=== PATIENT | male | born 1955 | race Caucasian/White ===

== ENCOUNTER → 2017-07-12 | Outpatient (CLI) | payer OTHER ==
[2017-07-12 21:06] LABS: SODIUM 138 mmol/L (136-145)
[2017-07-12 21:07] LABS: ANION GAP 14.3 mmol/L (8-16); BLOOD UREA NITROGEN 34 mg/dL (7-26); BUN/CREATININE RATIO 59 (6-25); CALCIUM 9.4 mg/dL (8.4-10.2); CARBON DIOXIDE 27 mmol/L (22-29); CHLORIDE 101 mmol/L (98-107); CREATININE, SERUM 0.58 mg/dL (0.72-1.25); EST GLOMERULAR FILTRATION RATE > 60 ML/MIN (60-); GLUCOSE 109 mg/dL (74-118); HEMATOCRIT 24.1 % (38.2-49.6); HEMOGLOBIN 7.5 g/dL (14.0-18.0); POTASSIUM 4.3 mmol/L (3.5-5.1)
[2017-07-12 21:08] LABS: BASOPHILS % 0.4 % (0.0-1.0); EOSINOPHILS # (AUTO) 0.3 (0.0-0.4); EOSINOPHILS % 3.3 % (0.0-6.0); LYMPHOCYTES # (AUTO) 0.8 (1.0-3.2); LYMPHOCYTES % 9.7 % (18.0-39.1); MEAN CORPUSCULAR HEMOGLOBIN 28.8 pg (28-32); MEAN CORPUSCULAR HGB CONC 31.1 g/dL (31-35); MEAN CORPUSCULAR VOLUME 92.7 fL (81-99); MONOCYTES # (AUTO) 0.5 (0.2-0.8); MONOCYTES % 5.8 % (4.4-11.3); NEUTROPHILS # (AUTO) 6.8 (2.1-6.9); NEUTROPHILS % 80.1 % (38.7-80.0); PLATELET COUNT 294 x10e3/uL (140-360); RED CELL DISTRIBUTION WIDTH 14.7 % (11.7-14.4)
[2017-07-19 13:58] LABS: CLARITY,URINE CLOUDY (CLEAR); COLOR,URINE YELLOW (YELLOW)
[2017-07-19 13:59] LABS: KETONES,URINE NEGATIVE (NEGATIVE); LEUKOCYTE ESTERASE ,URINE TRACE (NEGATIVE); NITRITE,URINE NEGATIVE (NEGATIVE); PROTEIN,URINE DIPSTICK NEGATIVE (NEGATIVE); URINE UROBILINOGEN 0.2 mg/dL (0.2 - 1)
[2017-07-19 14:00] LABS: BILIRUBIN,URINE NEGATIVE (NEGATIVE); WBC,URINE (MAN) 0-5 /HPF (0-5)
[2017-07-19 14:01] LABS: BACTERIA,URINE FEW /HPF; EPITHELIAL CELLS,URINE FEW /LPF; RBC,URINE 0-5 /HPF (0-5)
[2017-07-19 14:02] LABS: AMORPHOUS SEDIMENT,URINE MANY (FEW)
== END ==
LOC: NPA 09:00
PROVIDERS: ATTEND Internal Medicine
DX: R69 Illness, unspecified (principal)
CPT/HCPCS: 36415; 80048; 81001; 85025; 87070; 87086; 87205

== ENCOUNTER → 2017-07-18 | Outpatient (CLI) | payer OTHER ==
[~2017-07-18] MED LIST: M.V.I. ADULT10 ML PEG; VANCOMYCIN1 GM/250 M IV; ZINC SULFATE220 MG PEG
== END ==
LOC: NPA 17:00
PROVIDERS: ATTEND Internal Medicine
DX: Z02.89 Encounter for other administrative examinations (principal)

== ENCOUNTER → 2017-07-19 | Outpatient (CLI) | payer OTHER | LOC: NPA 09:00 | PROVIDERS: ATTEND Internal Medicine | DX: Z02.89 Encounter for other administrative examinations (principal) ==

== ENCOUNTER → 2017-07-22 | Outpatient (CLI) | payer OTHER | LOC: NPA 12:30 | PROVIDERS: ATTEND Internal Medicine | DX: Z02.89 Encounter for other administrative examinations (principal) | CPT/HCPCS: 36415 ==

== ENCOUNTER 2017-07-23 13:51 | Inpatient (IN) | payer MEDICARE ==
[~2017-07-23] VITALS: Ht 188 cm; Wt 96.2 kg
[2017-07-23] MEDS ORDERED: DILTIAZEM HCL 5 MG/ML 5 ML VIAL IV STA (13:58)
[2017-07-23] MEDS ORDERED: DILTIAZEM HCL 100 ML IV STA (13:58)
[2017-07-23] MEDS ORDERED: SODIUM CHLORIDE 0.9% 1000ML 1,000 ML IV STA (13:58)
[2017-07-23] MEDS ORDERED: DILTIAZEM HCL VIAL 5 ML ONE ×2 (14:08→15:13)
[2017-07-23] MEDS ORDERED: VANCOMYCIN1 GM/250 M IV (14:08)
[2017-07-23] MEDS ORDERED: M.V.I. ADULT10 ML PEG (14:08)
[2017-07-23] MEDS ORDERED: ZINC SULFATE220 MG PEG (14:09)
[2017-07-23 14:24] LABS: BASOPHILS % 0.3 % (0.0-1.0); EOSINOPHILS % 0.1 % (0.0-6.0); HEMATOCRIT 47.6 % (38.2-49.6); LYMPHOCYTES # (AUTO) 1.2 (1.0-3.2); LYMPHOCYTES % 10.1 % (18.0-39.1); MEAN CORPUSCULAR HEMOGLOBIN 31.3 pg (28-32); MEAN CORPUSCULAR HGB CONC 31.5 g/dL (31-35); MEAN CORPUSCULAR VOLUME 99.2 fL (81-99); MONOCYTES # (AUTO) 0.3 (0.2-0.8); MONOCYTES % 2.3 % (4.4-11.3); NEUTROPHILS # (AUTO) 10.3 (2.1-6.9); NEUTROPHILS % 86.9 % (38.7-80.0); PLATELET COUNT 305 x10e3/uL (140-360); RED CELL DISTRIBUTION WIDTH 14.6 % (11.7-14.4)
[2017-07-23] MEDS: DILTIAZEM HCL 100 ML IV SCH (14:30)
[2017-07-23 14:36] LABS: ALANINE AMINOTRANSFERASE 17 IU/L (0-55); ALBUMIN 3.2 g/dL (3.5-5.0); ALBUMIN/GLOBULIN RATIO 0.6 (0.8-2.0); ALKALINE PHOSPHATASE 194 IU/L (40-150); ANION GAP 18.1 mmol/L (8-16); BLOOD UREA NITROGEN 25 mg/dL (7-26); BUN/CREATININE RATIO 28 (6-25); CALCIUM 9.7 mg/dL (8.4-10.2); CARBON DIOXIDE 28 mmol/L (22-29); CHLORIDE 98 mmol/L (98-107); CREATINE KINASE 27 IU/L (30-200); CREATININE, SERUM 0.88 mg/dL (0.72-1.25); EST GLOMERULAR FILTRATION RATE > 60 ML/MIN (60-); GLUCOSE 200 mg/dL (74-118); LIPASE 155 U/L (8-78); POTASSIUM 4.1 mmol/L (3.5-5.1); SODIUM 140 mmol/L (136-145)
[2017-07-23] MEDS ORDERED: SODIUM CHLORIDE 0.9% 1000ML 1,000 ML ONE (14:40)
[2017-07-23 14:42] LABS: TROPONIN I 0.011 ng/mL (0-0.300)
[2017-07-23] MEDS ORDERED: SODIUM CHLORIDE 0.9% 1000ML 1,000 ML IV ONE (14:45)
[2017-07-23 14:56] LABS: ABG HCO3 23 mmol/L (23-28); ABG PCO2 39 mmHg (41-51); ABG PH 7.39 (7.31-7.41); ABG PO2 58 mmHg (80-105)
--- NOTE | 2017-07-23 15:06 | Diagnostic Imaging Report ---
PROCEDURE: A single AP view of the chest. COMPARISON: None. INDICATIONS: SHORTNESS OF BREATH FINDINGS: Lines/tubes: Tracheostomy tube is in place. Lungs: Lungs are hypoinflated. Multifocal air space opacities, including the left upper lobe. Pleura: There is no pleural effusion or pneumothorax. Heart and mediastinum: The heart and the mediastinum are unremarkable. Bones: No acute bony abnormality. IMPRESSION: Multifocal airspace opacities, likely multifocal pneumonia/aspiration. Dictated by: Silas Colorado M.D. on 07/23/2017 at 15:14 Electronically approved by: Silas Colorado M.D. on 07/23/2017 at 15:14
[2017-07-23] MEDS ORDERED: LORAZEPAM INJ 2 MG/ML VIAL IV ONE (15:15)
[2017-07-23] MEDS ORDERED: LORAZEPAM INJ 2 MG/ML VIAL ONE (15:17)
[2017-07-23] MEDS ORDERED: DIGOXIN INJ 0.25 MG/ML 2 ML AMP IV NR (15:30)
[2017-07-23] MEDS ORDERED: PIPER-TAZ 3.375 GM 50 ML IV STA (15:32)
[2017-07-23] MEDS ORDERED: HYDROCORTISONE SOD SUCCINATE 100 MG VIAL IV ONE (15:45)
[2017-07-23 16:00] LABS: BILIRUBIN,URINE NEGATIVE (NEGATIVE); CLARITY,URINE SL CLOUDY (CLEAR); COLOR,URINE YELLOW (YELLOW); KETONES,URINE NEGATIVE (NEGATIVE); LEUKOCYTE ESTERASE ,URINE TRACE (NEGATIVE); NITRITE,URINE NEGATIVE (NEGATIVE); PROTEIN,URINE DIPSTICK NEGATIVE (NEGATIVE); URINE UROBILINOGEN 0.2 mg/dL (0.2 - 1)
[2017-07-23 16:01] LABS: ABG HCO3 20 mmol/L (23-28); ABG PCO2 43 mmHg (41-51); ABG PH 7.27 (7.31-7.41); ABG PO2 62 mmHg (80-105)
[2017-07-23] MEDS ORDERED: VECURONIUM BROMIDE FOR INJ 20 MG VIAL IV STA (16:05)
[2017-07-23] MEDS ORDERED: MIDAZOLAM HCL 2 MG/2 ML VIAL IV STA (16:05)
[2017-07-23 16:12] LABS: BACTERIA,URINE FEW /HPF; EPITHELIAL CELLS,URINE RARE /LPF; RBC,URINE 0-5 /HPF (0-5)
[2017-07-23] MEDS ORDERED: SODIUM CHLORIDE 0.9% 1000ML 1,000 ML IV SCH ×3 (17:00→18:03)
[2017-07-23] MEDS ORDERED: PROPOFOL IV EMULSION 10 MG/ML 50 ML VIAL IV PRN ×2 (17:15→18:15)
[2017-07-23] MEDS ORDERED: PROPOFOL IV EMULSION 10MG/ML 100 ML ONE (17:23)
[2017-07-23] MEDS ORDERED: VANCOMYCIN 1GM/NS 250 ML 250 ML IV STA (17:23)
[2017-07-23 18:03] LABS: INR 1.23; PARTIAL THROMBOPLASTIN TIME 27.4 seconds (23.8-35.5); PROTHROMBIN TIME 16.1 seconds (11.9-14.5)
[2017-07-23] MEDS ORDERED: VANCOMYCIN HCL 1GM/NS 250 ML BAG IV SCH (18:15)
[2017-07-23] MEDS ORDERED: DILTIAZEM HCL 100 ML IV SCH (18:15)
[2017-07-23] MEDS: ENOXAPARIN INJ 80 MG/0.8 ML SYR SC SCH (18:33)
[2017-07-23 19:00] VITALS: BP 114/96
[2017-07-23] MEDS ORDERED: ALBUTEROL SULF 0.083% NEB SOLN 3 ML NEB NEB SCH (19:00)
[2017-07-23 20:00] VITALS: BP 107/65
[2017-07-23] MEDS: IPRATROPIUM BROMIDE 0.02% 2.5 ML NEB NEB SCH (20:20)
[2017-07-23 21:00] VITALS: BP 113/68
[2017-07-23] MEDS ORDERED: FENTANYL CITRATE INJ 2,000 MCG in SODIUM CHLORIDE 0.9% 250ML 210 ML IV PRN (21:00)
[2017-07-23] MEDS: SODIUM CHLORIDE 0.9% 1000ML 1,000 ML IV SCH (21:20)
[2017-07-23 22:00] VITALS: BP 104/70
[2017-07-23 22:11] LABS: CREATINE KINASE MB 1.3 ng/mL (0.00-5.00); TROPONIN I 0.021 ng/mL (0-0.300)
[2017-07-23 23:00] VITALS: BP 108/56
[2017-07-24] VITALS (21 sets, daily range): BP systolic 75–128; BP diastolic 37–98
[2017-07-24] MEDS ORDERED: HYDROCORTISONE SOD SUCCINATE 250 MG VIAL IV SCH
--- NOTE | 2017-07-24 01:20 | Consultation ---
DATE OF CONSULTATION: July 23, 2017 Patient is known to me from [facility]. Patient was transferred here for rapid AFib and increased heart rate. HPI: Mr. Burt is a 61-year-old male, who has a tracheostomy and a PEG and he is on ventilator and we are trying to wean him from the ventilator at [facility]. He has been on trach collar. He has a history of craniotomy for intracranial hemorrhage. Details are not very clear. He has hemiplegia due to that. He was sent in with rapid atrial fibrillation and rapid heart rate. Patient was found to be in atrial flutter and I was called this morning that patient's sputum grew out MRSA and he has multilobar infiltrate on the chest x-ray. Patient is unable to give me any history. REVIEW OF SYSTEMS: Unable to elicit because of patient's mental status. PAST MEDICAL HISTORY: History of stroke, craniotomy, tracheostomy, PEG tube status. This is all from the chart. Hypertension, hypothyroidism. PAST SURGICAL HISTORY: Craniotomy. FAMILY AND SOCIAL HISTORY: He is currently living at [facility]. PHYSICAL EXAM VITALS: Temperature 97.7, pulse of 120, blood pressure 152/93, respiratory rate is 18. He is on 100% FiO2 with a tidal volume of 550, and PEEP of 5. Patient has previous craniotomy and has right side of the skull is depressed and there is no bone. Tracheostomy. He is not responsive. He is on propofol. CHEST: Crackles bilaterally. HEART: S1, S2 audible. Tachycardic. No murmurs, gallops or rub. ABDOMEN: Soft, nontender. He has a PEG tube. EXTREMITIES: No pedal edema. NEUROLOGIC: Right now sedated and patient has a tracheostomy on a ventilator. LABORATORY DATA: Sodium 140, potassium 4.1, chloride 98, BUN 25, creatinine 0.8. White count of 11,000, hemoglobin 15, platelets 305,000. INR is 1.23. Blood gas, pH of 7.27, pCO2 43, pO2 62. Chest x-ray showing multilobar infiltrate. ASSESSMENT AND PLAN: Mr. Burt is a 61-year-old male, who history of craniotomy. Patient was at [facility], weaned from the ventilator, and was on trach collar, presented here with multilobar pneumonia and atrial fibrillation. PLAN 1. Continue the patient on IV vancomycin and Zosyn. Cultures at [facility] grew out MRSA. 2. Hydrocortisone has been started for hypotension. 3. Recommend starting fentanyl infusion instead of propofol. 4. Management of atrial fibrillation per cardiology. 5. I will discontinue albuterol and continue the patient on ipratropium because of tachycardia. CRITICAL CARE TIME SPENT: 45 minutes. Job#: [id number] CQ
[2017-07-24 01:30] LABS: ABG PH 7.38 (7.31-7.41)
--- NOTE | 2017-07-24 01:55 | History and Physical ---
CHIEF COMPLAINT: Respiratory failure, tracheostomy, history of craniotomy, nonverbal, septic shock, aspiration pneumonia. HISTORY: The patient is a 61-year-old male, a resident of [facility] facility was brought into the emergency room here at [facility] with respiratory failure. The patient is at baseline with tracheostomy. He is with fever. The imaging tests that was done in the emergency room showed that the patient had multifocal airspace opacity with multiple focal pneumonia with aspiration. The patient's baseline with history of craniotomy. He had a tracheostomy and also PEG tube. The patient seems quite significantly ill. His blood pressure systolic is 99. The patient in sepsis with shock. He was placed on pressor support, IV fluid boluses. He is placed on IV antibiotics. The patient is admitted for treatment. PAST MEDICAL HISTORY: Limited due to the patient nonverbal, but seems like that the patient is medically debilitated. He has a tracheostomy and PEG tube. He had craniotomy. Aspiration. Chronically ill, bedbound and full care. Extensive lower extremity swelling with significant decubitus ulcer. SOCIAL HISTORY: Not available. PHYSICAL EXAMINATION VITAL SIGNS: Temperature is 100, blood pressure 99/57, pulse rate 128 and atrial fibrillation. GENERAL: Patient seems very ill. Tracheostomy and PEG tube. HEENT: Significant for craniotomy with a large indentation to right scalp area. There is no sign of new insult to the scalp or the head. Tracheostomy. PULMONARY: Diminished breath sounds bilaterally with coarses. CARDIOVASCULAR: Atrial fibrillation with rapid rate. ABDOMEN: Soft. PEG tube feeding. EXTREMITIES: Extensive chronic skin changes with ulceration and peripheral vascular disease. NEUROLOGIC: Not able to assess. LABORATORY: WBC is 11.8, hemoglobin 15, hematocrit 47.6, and platelets is 305,000. Chemistry: Sodium is 140, potassium 4.1, chloride 98, bicarb 26, BUN 25, creatinine 0.8, glucose is 200. IMAGING: Showed multifocal pneumonia. IMPRESSION 1. Atrial fibrillation with rapid rate. 2. Aspiration pneumonia. 3. Sepsis with shock. 4. Tracheostomy with respiratory failure and ventilator support. 5. Significant debility. PLAN: Continue with IV antibiotics. Ventilator support. Consultation with cardiology. Rate control medication. Bolus of IV fluids. Antibiotics. Will get the patient's medical records for further medical history. Job#: [id number] RI
[2017-07-24] MEDS: IPRATROPIUM BROMIDE 0.02% 2.5 ML NEB NEB SCH ×4 (02:20→20:45)
[2017-07-24] MEDS: HYDROCORTISONE SOD SUCCINATE 100 MG VIAL IV SCH ×4 (02:52→18:36)
[2017-07-24] MEDS: PIPER-TAZ 3.375 GM 50 ML IV SCH ×4 (02:53→18:36)
[2017-07-24 05:38] LABS: BASOPHILS % 0.3 % (0.0-1.0); HEMATOCRIT 36.2 % (38.2-49.6); HEMOGLOBIN 11.7 g/dL (14.0-18.0); LYMPHOCYTES # (AUTO) 1.2 (1.0-3.2); LYMPHOCYTES % 9.5 % (18.0-39.1); MEAN CORPUSCULAR HEMOGLOBIN 31.3 pg (28-32); MEAN CORPUSCULAR HGB CONC 32.3 g/dL (31-35); MEAN CORPUSCULAR VOLUME 96.8 fL (81-99); MONOCYTES # (AUTO) 0.9 (0.2-0.8); NEUTROPHILS # (AUTO) 10.6 (2.1-6.9); PLATELET COUNT 226 x10e3/uL (140-360); RED BLOOD COUNT 3.74 x10e6/uL (4.3-5.7); RED CELL DISTRIBUTION WIDTH 14.8 % (11.7-14.4)
[2017-07-24 05:56] LABS: ANION GAP 15.9 mmol/L (8-16); CALCIUM 8.3 mg/dL (8.4-10.2); CREATININE, SERUM 1.29 mg/dL (0.72-1.25); POTASSIUM 3.9 mmol/L (3.5-5.1)
[2017-07-24] MEDS: VANCOMYCIN 1GM/NS 250 ML 250 ML IV SCH ×2 (06:00→18:36)
[2017-07-24] MEDS: SODIUM CHLORIDE 0.9% 1000ML 1,000 ML IV SCH ×3 (06:00→22:00)
[2017-07-24 06:19] LABS: CREATINE KINASE MB 3.6 ng/mL (0.00-5.00); THYROID STIMULATING HORMONE 2.917 uIU/mL (0.350-4.940); TROPONIN I 0.012 ng/mL (0-0.300)
[2017-07-24 07:07] LABS: BAND NEUTROPHILS % (MANUAL) 24 %; LYMPHOCYTES % (MANUAL) 11 % (19-48); MONOCYTES % (MANUAL) 9 % (3.4-9.0); MYELOCYTES % (MANUAL) 1 % (0-0); NEUTROPHILS % (MANUAL) 53 % (40-74)
[2017-07-24 07:13] LABS: ANISOCYTOSIS SLIGHT; PLATELET ESTIMATE ADEQUATE; PLATELET MORPHOLOGY COMMENT NORMAL; RBC MORPHOLOGY COMMENT NORMAL; TEAR DROP CELLS FEW
[2017-07-24] MEDS ORDERED: SODIUM CHLORIDE 0.9% 1000ML 500 ML IV SCH (07:15)
[2017-07-24] MEDS ORDERED: ENOXAPARIN SOD INJ 40 MG/0.4 ML SYR SC SCH (09:00)
[2017-07-24] MEDS: DIGOXIN INJ 0.25 MG/ML 2 ML AMP IV SCH (09:00)
[2017-07-24] MEDS: ENOXAPARIN INJ 80 MG/0.8 ML SYR SC SCH ×2 (09:00→21:20)
[2017-07-24 14:04] LABS: CREATINE KINASE MB 3.2 ng/mL (0.00-5.00); TROPONIN I 0.006 ng/mL (0-0.300)
[2017-07-24] MEDS: DILTIAZEM HCL 100 ML IV SCH (15:20)
[2017-07-24] MEDS ORDERED: VANCOMYCIN 1GM/NS 250 ML 250 ML IV SCH (18:00)
--- NOTE | 2017-07-24 21:54 | Diagnostic Imaging Report ---
EXAM: CHEST SINGLE (PORTABLE), AP 1 view DATE: 07/24/2017 5:00 AM Time stamp on exam: 0617 hours INDICATION: Shortness of breath, ventilated patient COMPARISON: AP view of the chest July 23, 2017 FINDINGS: LINES/TUBES: Stable tracheostomy tube LUNGS: Airspace opacities predominantly in the lung bases. PLEURA: No effusions or pneumothorax. HEART AND MEDIASTINUM: Normal size and contour. BONES AND SOFT TISSUES: No acute findings. IMPRESSION: Stable findings suspicious for multifocal pneumonia. Signed by: Dr. Marlene Kapoor M.D. on 07/24/2017 9:51 PM
[2017-07-25] MEDS: IPRATROPIUM BROMIDE 0.02% 2.5 ML NEB NEB SCH ×5 (01:00→18:48)
[2017-07-25] MEDS: HYDROCORTISONE SOD SUCCINATE 100 MG VIAL IV SCH ×5 (01:26→22:19)
[2017-07-25] MEDS: PIPER-TAZ 3.375 GM 50 ML IV SCH ×4 (05:55→18:09)
[2017-07-25 06:00] LABS: BASOPHILS % 0.2 % (0.0-1.0); EOSINOPHILS # (AUTO) 0.1 (0.0-0.4); EOSINOPHILS % 0.7 % (0.0-6.0); HEMATOCRIT 31.8 % (38.2-49.6); HEMOGLOBIN 10.2 g/dL (14.0-18.0); LYMPHOCYTES # (AUTO) 1.2 (1.0-3.2); LYMPHOCYTES % 10.2 % (18.0-39.1); MEAN CORPUSCULAR HEMOGLOBIN 31.5 pg (28-32); MEAN CORPUSCULAR HGB CONC 32.1 g/dL (31-35); MEAN CORPUSCULAR VOLUME 98.1 fL (81-99); MONOCYTES # (AUTO) 0.9 (0.2-0.8); MONOCYTES % 7.7 % (4.4-11.3); NEUTROPHILS # (AUTO) 9.9 (2.1-6.9); NEUTROPHILS % 80.9 % (38.7-80.0); PLATELET COUNT 203 x10e3/uL (140-360); RED BLOOD COUNT 3.24 x10e6/uL (4.3-5.7); RED CELL DISTRIBUTION WIDTH 15.1 % (11.7-14.4)
[2017-07-25 06:17] LABS: BLOOD UREA NITROGEN 28 mg/dL (7-26); BUN/CREATININE RATIO 34 (6-25); CALCIUM 8.2 mg/dL (8.4-10.2); CARBON DIOXIDE 23 mmol/L (22-29); CHLORIDE 111 mmol/L (98-107); CREATININE, SERUM 0.82 mg/dL (0.72-1.25); EST GLOMERULAR FILTRATION RATE > 60 ML/MIN (60-); GLUCOSE 116 mg/dL (74-118); SODIUM 143 mmol/L (136-145)
[2017-07-25] MEDS: VANCOMYCIN 1GM/NS 250 ML 250 ML IV SCH ×2 (06:26→18:45)
[2017-07-25] MEDS: ENOXAPARIN INJ 80 MG/0.8 ML SYR SC SCH (09:27)
[2017-07-25] MEDS: DIGOXIN INJ 0.25 MG/ML 2 ML AMP IV SCH (09:27)
[2017-07-25] MEDS: SODIUM CHLORIDE 0.9% 1000ML 1,000 ML IV SCH ×2 (09:27→13:16)
[2017-07-25] MEDS ORDERED: DEXTROSE 5% IV PRN (12:00)
[2017-07-25] MEDS ORDERED: DILTIAZEM HCL IV PRN (12:00)
[2017-07-25] MEDS ORDERED: POTASSIUM CHLORIDE 20MEQ/15ML UDC NG NR (12:45)
[2017-07-26] VITALS (8 sets, daily range): BP systolic 61–144; BP diastolic 43–94
[2017-07-26] MEDS: PIPER-TAZ 3.375 GM 50 ML IV SCH ×4 (00:29→18:00)
[2017-07-26] MEDS: IPRATROPIUM BROMIDE 0.02% 2.5 ML NEB NEB SCH ×4 (02:05→20:15)
[2017-07-26] MEDS: VANCOMYCIN 1GM/NS 250 ML 250 ML IV SCH ×2 (06:00→18:00)
[2017-07-26] MEDS: HYDROCORTISONE SOD SUCCINATE 100 MG VIAL IV SCH ×2 (06:00→14:51)
[2017-07-26 06:45] LABS: BASOPHILS % 0.2 % (0.0-1.0); EOSINOPHILS % 0.1 % (0.0-6.0); HEMATOCRIT 30.6 % (38.2-49.6); HEMOGLOBIN 9.8 g/dL (14.0-18.0); LYMPHOCYTES # (AUTO) 1.3 (1.0-3.2); LYMPHOCYTES % 12.1 % (18.0-39.1); MEAN CORPUSCULAR HEMOGLOBIN 31.3 pg (28-32); MEAN CORPUSCULAR VOLUME 97.8 fL (81-99); MONOCYTES # (AUTO) 0.7 (0.2-0.8); MONOCYTES % 6.5 % (4.4-11.3); NEUTROPHILS # (AUTO) 8.5 (2.1-6.9); PLATELET COUNT 242 x10e3/uL (140-360); RED BLOOD COUNT 3.13 x10e6/uL (4.3-5.7); RED CELL DISTRIBUTION WIDTH 14.9 % (11.7-14.4)
[2017-07-26 08:21] LABS: ANION GAP 12.2 mmol/L (8-16); BLOOD UREA NITROGEN 23 mg/dL (7-26); BUN/CREATININE RATIO 33 (6-25); CALCIUM 8.2 mg/dL (8.4-10.2); CARBON DIOXIDE 23 mmol/L (22-29); CHLORIDE 113 mmol/L (98-107); CREATININE, SERUM 0.69 mg/dL (0.72-1.25); EST GLOMERULAR FILTRATION RATE > 60 ML/MIN (60-); GLUCOSE 134 mg/dL (74-118); POTASSIUM 3.2 mmol/L (3.5-5.1); SODIUM 145 mmol/L (136-145)
[2017-07-26] MEDS ORDERED: DEXTROSE 5% IV PRN (08:45)
[2017-07-26] MEDS ORDERED: DILTIAZEM HCL IV PRN (08:45)
[2017-07-26] MEDS: ASPIRIN 325 MG TAB PO SCH (10:03)
[2017-07-26] MEDS: DIGOXIN INJ 0.25 MG/ML 2 ML AMP IV SCH (10:03)
[2017-07-27] VITALS (19 sets, daily range): BP systolic 133–169; BP diastolic 75–120
[2017-07-27] MEDS: PIPER-TAZ 3.375 GM 50 ML IV SCH ×4 (00:51→18:55)
[2017-07-27] MEDS: IPRATROPIUM BROMIDE 0.02% 2.5 ML NEB NEB SCH ×4 (01:00→20:20)
[2017-07-27 05:22] LABS: BASOPHILS # (AUTO) 0.1 (0.0-0.1); BASOPHILS % 0.4 % (0.0-1.0); EOSINOPHILS # (AUTO) 0.1 (0.0-0.4); HEMATOCRIT 33.3 % (38.2-49.6); HEMOGLOBIN 10.5 g/dL (14.0-18.0); LYMPHOCYTES # (AUTO) 1.7 (1.0-3.2); LYMPHOCYTES % 13.5 % (18.0-39.1); MEAN CORPUSCULAR HEMOGLOBIN 30.6 pg (28-32); MEAN CORPUSCULAR HGB CONC 31.5 g/dL (31-35); MEAN CORPUSCULAR VOLUME 97.1 fL (81-99); MONOCYTES # (AUTO) 1.1 (0.2-0.8); MONOCYTES % 9.1 % (4.4-11.3); NEUTROPHILS # (AUTO) 9.2 (2.1-6.9); NEUTROPHILS % 74.5 % (38.7-80.0); PLATELET COUNT 280 x10e3/uL (140-360); RED BLOOD COUNT 3.43 x10e6/uL (4.3-5.7); RED CELL DISTRIBUTION WIDTH 14.7 % (11.7-14.4)
[2017-07-27 05:39] LABS: ANION GAP 12.2 mmol/L (8-16); BLOOD UREA NITROGEN 19 mg/dL (7-26); BUN/CREATININE RATIO 29 (6-25); CALCIUM 8.3 mg/dL (8.4-10.2); CARBON DIOXIDE 26 mmol/L (22-29); CHLORIDE 111 mmol/L (98-107); CREATININE, SERUM 0.65 mg/dL (0.72-1.25); EST GLOMERULAR FILTRATION RATE > 60 ML/MIN (60-); GLUCOSE 99 mg/dL (74-118); POTASSIUM 3.2 mmol/L (3.5-5.1); SODIUM 146 mmol/L (136-145); VANCOMYCIN,RANDOM 17.8 ug/mL
[2017-07-27] MEDS: BALSAM PERU/CASTOR OIL 60 GM OINT...G. TP SCH ×3 (06:00→20:43)
[2017-07-27] MEDS: VANCOMYCIN 1GM/NS 250 ML 250 ML IV SCH ×2 (06:00→19:39)
[2017-07-27] MEDS ORDERED: HYDROCORTISONE SOD SUCCINATE 100 MG VIAL IV SCH (09:00)
[2017-07-27] MEDS ORDERED: HYDROMORPHONE 2MG/ML INJ IV PRN (09:00)
[2017-07-27] MEDS: ASPIRIN 325 MG TAB PO SCH (09:59)
[2017-07-27] MEDS: DIGOXIN INJ 0.25 MG/ML 2 ML AMP IV SCH (09:59)
[2017-07-27] MEDS: FENTANYL 50 MCG/HR PATCH TOP SCH (10:56)
[2017-07-27] MEDS ORDERED: FUROSEMIDE INJ 10 MG/ML 4 ML VIAL IV ONE (12:00)
[2017-07-27] MEDS: HYDROMORPHONE 2MG/ML INJ IV PRN (14:12)
[2017-07-27] MEDS ORDERED: SODIUM CHLORIDE 0.9% 250ML 250 ML ONE (18:40)
[2017-07-28] VITALS (10 sets, daily range): BP systolic 140–172; BP diastolic 78–102
[2017-07-28] MEDS: PIPER-TAZ 3.375 GM 50 ML IV SCH ×5 (00:32→23:44)
[2017-07-28] MEDS: IPRATROPIUM BROMIDE 0.02% 2.5 ML NEB NEB SCH ×3 (02:05→13:30)
[2017-07-28] MEDS: VANCOMYCIN 1GM/NS 250 ML 250 ML IV SCH ×2 (06:11→18:00)
[2017-07-28] MEDS: LEVOTHYROXINE SODIUM 100 MCG/VIAL IV SCH (09:17)
[2017-07-28] MEDS: ASPIRIN 325 MG TAB PO SCH (09:17)
[2017-07-28] MEDS: DIGOXIN INJ 0.25 MG/ML 2 ML AMP IV SCH (09:17)
[2017-07-28] MEDS: HYDROMORPHONE 2MG/ML INJ IV PRN ×2 (10:30→22:10)
[2017-07-28] MEDS: BALSAM PERU/CASTOR OIL 60 GM OINT...G. TP SCH ×3 (11:14→21:23)
[2017-07-28] MEDS ORDERED: POTASSIUM CHLORIDE 20 MEQ TAB CR PO ONE (16:30)
[2017-07-29] VITALS (7 sets, daily range): BP systolic 134–169; BP diastolic 77–95
[2017-07-29] MEDS: IPRATROPIUM BROMIDE 0.02% 2.5 ML NEB NEB SCH ×4 (02:30→20:30)
[2017-07-29] MEDS: PIPER-TAZ 3.375 GM 50 ML IV SCH (05:49)
[2017-07-29] MEDS: VANCOMYCIN 1GM/NS 250 ML 250 ML IV SCH ×2 (06:15→17:44)
[2017-07-29 07:07] LABS: BASOPHILS # (AUTO) 0.1 (0.0-0.1); BASOPHILS % 0.4 % (0.0-1.0); EOSINOPHILS # (AUTO) 0.2 (0.0-0.4); EOSINOPHILS % 1.1 % (0.0-6.0); HEMATOCRIT 33.8 % (38.2-49.6); HEMOGLOBIN 10.8 g/dL (14.0-18.0); LYMPHOCYTES # (AUTO) 1.4 (1.0-3.2); MEAN CORPUSCULAR HEMOGLOBIN 31.1 pg (28-32); MEAN CORPUSCULAR VOLUME 97.4 fL (81-99); MONOCYTES # (AUTO) 1.5 (0.2-0.8); MONOCYTES % 8.5 % (4.4-11.3); NEUTROPHILS # (AUTO) 13.7 (2.1-6.9); NEUTROPHILS % 80.1 % (38.7-80.0); PLATELET COUNT 299 x10e3/uL (140-360); RED BLOOD COUNT 3.47 x10e6/uL (4.3-5.7)
[2017-07-29 07:49] LABS: ANION GAP 10.8 mmol/L (8-16); BLOOD UREA NITROGEN 19 mg/dL (7-26); BUN/CREATININE RATIO 27 (6-25); CALCIUM 8.2 mg/dL (8.4-10.2); CARBON DIOXIDE 31 mmol/L (22-29); CHLORIDE 106 mmol/L (98-107); EST GLOMERULAR FILTRATION RATE > 60 ML/MIN (60-); GLUCOSE 167 mg/dL (74-118); SODIUM 145 mmol/L (136-145)
[2017-07-29 07:53] LABS: POTASSIUM 2.8 mmol/L (3.5-5.1)
[2017-07-29 08:23] LABS: MAGNESIUM 1.3 MG/DL (1.3-2.1); PHOSPHORUS 2.6 MG/DL (2.3-4.7)
[2017-07-29] MEDS ORDERED: MAGNESIUM SULFATE 2GM/50ML IV ONE (09:00)
[2017-07-29] MEDS ORDERED: POTASSIUM CHLORIDE 20 MEQ TAB CR PO SCH (09:30)
[2017-07-29] MEDS ORDERED: MAGNESIUM SULFATE 2GM/50ML 50 ML IV ONE (09:30)
[2017-07-29] MEDS: ASPIRIN 325 MG TAB PO SCH (10:00)
[2017-07-29] MEDS ORDERED: POTASSIUM CHLORIDE 100 ML IV ONE (10:00)
[2017-07-29] MEDS: DIGOXIN INJ 0.25 MG/ML 2 ML AMP IV SCH (10:00)
[2017-07-29] MEDS: BALSAM PERU/CASTOR OIL 60 GM OINT...G. TP SCH ×3 (10:27→22:50)
[2017-07-29] MEDS: SOD CHL 0.45%/POT CHL 20MEQ 1,000 ML IV SCH ×2 (12:27→22:24)
--- NOTE | 2017-07-29 13:20 | Consultation ---
DATE OF CONSULTATION: July 24, 2017 CARDIOLOGY CONSULTATION ATTENDING PHYSICIAN: Dr. Adi Elkins. Thank you for asking me to see this challenging patient in consultation. Mr. Randolph is a very complex 61-year-old man, a resident of [facility]. CHIEF COMPLAINT: He is transferred to the [facility] emergency room after he developed some respiratory insufficiency and chest x-ray suggests pneumonia and sputum cultures grew MRSA. PAST MEDICAL HISTORY: Is difficult to obtain, but records from [facility] show that about June 08, 2017, he was transported from [facility] by [employer] helicopter to [facility] for a cerebrovascular accident and had a craniotomy performed. The exact details, findings and results are not entirely clear. The records at [facility] do report intermittent or paroxysmal atrial fibrillation, but he is on no anti-arrhythmic medicine. His medicines as the [facility] include vancomycin, multivitamin, metoprolol tartrate 50 mg by G tube daily, digoxin 0.125 mg daily, levothyroxine 125 mcg daily, DuoNeb treatments, sliding-scale insulin, atorvastatin, tramadol. PERSONAL AND SOCIAL HISTORY AND REVIEW OF SYSTEMS: Not available as the patient is on ventilator and no family present. PAST SURGICAL HISTORY: Also, in addition to his craniotomy, has also had tracheostomy and PEG tube. PHYSICAL EXAMINATION: GENERAL: At this time shows a white man who is awake, is on ventilator. HEENT: Show that he has had the right-sided craniotomy defect, large. Pupils are equal, round, reactive. NECK: No jugular venous distention. There is tracheostomy present. THORAX: Heart sounds S1 and S2 are equal, irregularly irregular. There is no distinct murmur audible. Lungs have rhonchi bilaterally. ABDOMEN: Protuberant. PEG tube. EXTREMITIES: Show trophic changes. ASSESSMENT: 1. Respiratory insufficiency. 2. Methicillin-resistant Staph aureus pneumonia. 3. Atrial fibrillation. Rate control better with Cardizem drip. PLAN: Agree with continuing Cardizem drip. Will check echo and cardiac enzymes. Cannot consider anticoagulation at this time due to recent stroke described as large and craniotomy. Prognosis is guarded. Thank you for asking me to see him in consultation. Job#: [id number] EV cc:MD TIERNEY VILLANUEVA M.D.
[2017-07-29] MEDS: LEVOTHYROXINE SODIUM 100 MCG/VIAL IV SCH (13:28)
[2017-07-29] MEDS: MEROPENEM 500MG 500 MG in WATER STERILE 10ML VIAL 10 ML IV SCH ×2 (13:28→22:24)
[2017-07-29] MEDS ORDERED: DIATRIZOATE MEGL/DIATRIZOA SOD 30 ML BTL PO ONE ×2 (14:14→16:32)
--- NOTE | 2017-07-29 14:28 | Consultation ---
DATE OF CONSULTATION: REASON FOR CONSULTATION: Pneumonia. Thank you so much for asking me to see this patient. HISTORY OF PRESENT ILLNESS: This patient is a 61-year-old white [facility] The patient was brought to the emergency room with shortness of breath and cough. The patient has an underlying history of tracheostomy. The patient is medically debilitated and not a good source of information. He does have a trach and PEG. The patient had a craniotomy. He has history of recurrent aspiration. He is chronically ill and bedbound. Extensive bilateral lower extremity edema and decubitus ulcers. The patient was admitted and started on antibiotic. Infectious disease was consulted today. He was originally admitted on July 23, 2017. He has been on antibiotic since then. Patient apparently was quite ill when he first came to the emergency room, but today he looks much better. He is alert and follows simple commands. This patient has a history of atrial fibrillation with tachycardia, history of recurrent aspiration, history of sepsis. He has a tracheostomy. History of PEG tube placement. History of craniotomy. The patient when he first came was on a ventilator, but currently he is off the vent. I do not know why he has a history of craniotomy. PAST MEDICAL HISTORY: As above. PAST SURGICAL HISTORY: As above. ALLERGIES: HYDROCODONE AND SULFA DRUGS. SOCIAL HISTORY: There is no smoking, drug abuse or alcohol abuse currently. FAMILY HISTORY: Could not be obtained. MEDICATION: He is currently on potassium chloride. He is on aspirin, digoxin, Atrovent, vancomycin, levothyroxine, Fentanyl and meropenem. REVIEW OF SYSTEMS: Very hard to get from this patient. He follows simple commands. Nurse is at the bedside. I discussed with her. She thinks he is doing better in general. LABORATORY DATA: Reviewed. His white count today is 17.1. When he first came, it was 12, went down to 10, and now it is up to 17.11. Hemoglobin 10.8, hematocrit 33. Sodium 145, potassium 2.8, creatinine 0.70. Vancomycin trough has been 16.3. His C. diff and influenza A and B have been negative. LABS: He had a wound culture showing ESBL and MRSA. His blood culture shows coagulase-negative staph. He had a chest x-ray which was multifocal pneumonia. PHYSICAL EXAMINATION GENERAL: Currently alert and oriented, follows simple commands. VITALS: Stable. Currently afebrile. HEENT: Not icteric. Normocephalic. NECK: Supple. CHEST: Few crackles bilaterally. COR: S1 and S2. No S3, S4 or murmur. ABDOMEN: Soft. Bowel sounds present. No tenderness. EXTREMITIES: There is some trace edema. He does have a decubitus ulcer in the sacral area. IMPRESSION 1. Leukocytosis in a patient who was originally admitted for pneumonia. I suspect it was aspiration. This is day #5, and the white count is getting worse. I would recommend to recheck CT chest, abdomen and pelvis to assess his pneumonia but also to assess the decubitus ulcer. I am concerned that his leukocytosis could be drug related. Clinically, he seems better. His pneumonia seems to be better. Will follow with you. 2. History of craniotomy. 3. History of tracheostomy. Further recommendations to follow. Job#: [id number]
[2017-07-29] MEDS ORDERED: SODIUM CHLORIDE 0.9% 50ML 50 ML ONE (22:40)
[2017-07-29] MEDS ORDERED: IOPAMIDOL 370 MG/ML 200 ML INFUS..BTL INJ ONE (22:41)
[2017-07-30] VITALS (8 sets, daily range): BP systolic 139–179; BP diastolic 67–104
[2017-07-30] MEDS: HYDROMORPHONE 2MG/ML INJ IV PRN (00:48)
[2017-07-30] MEDS: IPRATROPIUM BROMIDE 0.02% 2.5 ML NEB NEB SCH ×4 (01:30→20:00)
[2017-07-30] MEDS: VANCOMYCIN 1GM/NS 250 ML 250 ML IV SCH (06:31)
[2017-07-30] MEDS: MEROPENEM 500MG 500 MG in WATER STERILE 10ML VIAL 10 ML IV SCH ×2 (06:31→13:21)
[2017-07-30 06:46] LABS: BASOPHILS # (AUTO) 0.1 (0.0-0.1); BASOPHILS % 0.3 % (0.0-1.0); EOSINOPHILS # (AUTO) 0.3 (0.0-0.4); EOSINOPHILS % 1.6 % (0.0-6.0); HEMATOCRIT 33.8 % (38.2-49.6); HEMOGLOBIN 10.7 g/dL (14.0-18.0); LYMPHOCYTES # (AUTO) 1.8 (1.0-3.2); LYMPHOCYTES % 9.5 % (18.0-39.1); MEAN CORPUSCULAR HEMOGLOBIN 30.7 pg (28-32); MEAN CORPUSCULAR HGB CONC 31.7 g/dL (31-35); MEAN CORPUSCULAR VOLUME 97.1 fL (81-99); MONOCYTES # (AUTO) 1.6 (0.2-0.8); MONOCYTES % 8.3 % (4.4-11.3); NEUTROPHILS # (AUTO) 15.1 (2.1-6.9); NEUTROPHILS % 78.6 % (38.7-80.0); PLATELET COUNT 320 x10e3/uL (140-360); RED BLOOD COUNT 3.48 x10e6/uL (4.3-5.7)
[2017-07-30 07:07] LABS: ANION GAP 11.2 mmol/L (8-16); BLOOD UREA NITROGEN 17 mg/dL (7-26); BUN/CREATININE RATIO 27 (6-25); CALCIUM 8.3 mg/dL (8.4-10.2); CARBON DIOXIDE 34 mmol/L (22-29); CHLORIDE 108 mmol/L (98-107); CREATININE, SERUM 0.62 mg/dL (0.72-1.25); EST GLOMERULAR FILTRATION RATE > 60 ML/MIN (60-); GLUCOSE 118 mg/dL (74-118); MAGNESIUM 1.9 MG/DL (1.3-2.1); PHOSPHORUS 2.7 MG/DL (2.3-4.7); POTASSIUM 3.2 mmol/L (3.5-5.1); SODIUM 150 mmol/L (136-145)
[2017-07-30] MEDS: DIGOXIN INJ 0.25 MG/ML 2 ML AMP IV SCH (08:04)
[2017-07-30] MEDS: ASPIRIN 325 MG TAB PO SCH (08:04)
[2017-07-30] MEDS: BALSAM PERU/CASTOR OIL 60 GM OINT...G. TP SCH ×3 (08:04→21:43)
[2017-07-30] MEDS: LEVOTHYROXINE SODIUM 100 MCG/VIAL IV SCH (10:00)
[2017-07-30] MEDS ORDERED: POTASSIUM CHLORIDE 20MEQ/15ML UDC PEG ONE (10:00)
[2017-07-30] MEDS: FENTANYL 50 MCG/HR PATCH TOP SCH (11:00)
[2017-07-30] MEDS: SOD CHL 0.45%/POT CHL 20MEQ 1,000 ML IV SCH (13:21)
--- NOTE | 2017-07-30 14:45 | Diagnostic Imaging Report ---
EXAMINATION: CT of the abdomen and pelvis with contrast. TECHNIQUE: Spiral CT images of the abdomen and pelvis were performed from the lung bases to the lesser trochanters after the intravenous administration of 100 cc of Isovue 370 and the oral administration of dilute Gastrografin.. Coronal and sagittal reformatted images were obtained. COMPARISON: None. CLINICAL HISTORY:Colitis, acute hypoxic episode, abdominal pain DISCUSSION: Exam limited by artifact from patient's arms ABDOMEN/PELVIS: LOWER THORAX:Small left and trace right pleural effusions with moderate bilateral basal atelectatic changes. Nodular/tree-in-bud opacities are noted in the lateral right middle lobe (series 2, image 3). HEPATOBILIARY: No focal hepatic lesions. No intra or extrahepatic biliary ductal dilation. GALLBLADDER: No radio-opaque stones or sludge. No wall thickening. SPLEEN: No splenomegaly. 2.8 cm round, well-circumscribed lesion in the medial spleen (series 2, image 13), which measures near water density. PANCREAS: No focal masses or ductal dilatation. ADRENALS: No adrenal nodules. KIDNEYS/URETERS: No hydronephrosis, stones, or solid mass lesions. There is contour abnormality in the posteromedial interpolar right kidney (series 2, image 36), which may represent cortical scarring. Wedge-shaped hypodensities noted in the inferior left kidney (series 2, image 43 and possibly right upper pole (coronal image 72). PELVIC ORGANS/BLADDER: Bladder is decompressed and there is a Weiss catheter in place. PERITONEUM/RETROPERITONEUM: Trace free fluid in the pelvic cul-de-sac (series 2, image 76). LYMPH NODES: No intra-abdominal, retroperitoneal, pelvic or inguinal lymphadenopathy. VESSELS: The celiac trunk,superior and inferior mesenteric and bilateral renal arteries are patent The portal, superior mesenteric and splenic veins are patent. Atherosclerotic calcification of the infrarenal abdominal aorta and iliac vessels GI TRACT: There is mild gaseous dilation of the transverse colon, with maximal measurement of 6.8 cm. The ascending, descending and sigmoid colon are normal in caliber. No obstructing mass, wall thickening or abnormal enhancement.No definite evidence of obstruction Small bowel is normal in caliber. There is likely a high riding cecum. BONES AND SOFT TISSUE: No aggressive lytic lesion. Degenerative changes in the lower thoracic and lumbosacral spine. IMPRESSION: 1. Mild gaseous dilation of the transverse colon, with maximal measurement of 6.8 cm, however, the rest of the large bowel is normal in caliber. No obstructing mass, wall thickening or abnormal enhancement is identified. Small bowel is normal in caliber. No evidence of obstruction. 2. Findings in the inferior left kidney and right upper pole may represent infection/pyelonephritis. Correlate with urinalysis. 3. Small left and trace right pleural effusions with moderate bilateral atelectatic changes. Tree-in-bud opacities in the lateral right middle lobe suggesting endobronchial spread of infection/developing pneumonia. 4. 2.8 cm well-circumscribed near water density in the spleen may reflect a hemangioma or cyst. Signed by: Dr. Kris Coates M.D. on 07/30/2017 2:42 PM
[2017-07-30 16:29] LABS: BILIRUBIN,URINE NEGATIVE (NEGATIVE); KETONES,URINE NEGATIVE (NEGATIVE); LEUKOCYTE ESTERASE ,URINE 2+ (NEGATIVE); NITRITE,URINE NEGATIVE (NEGATIVE); URINE UROBILINOGEN 0.2 mg/dL (0.2 - 1)
[2017-07-30 16:32] LABS: CLARITY,URINE HAZY (CLEAR); COLOR,URINE YELLOW (YELLOW); PROTEIN,URINE DIPSTICK TRACE (NEGATIVE)
[2017-07-30 16:47] LABS: BACTERIA,URINE MANY /HPF; CALCIUM OXALATE CRYSTALS,UR FEW (FEW); EPITHELIAL CELLS,URINE RARE /LPF; URIC ACID CRYSTALS,URINE FEW (FEW); YEAST,URINE MODERATE
[2017-07-30] MEDS: VANCOMYCIN 250MG/5ML ORAL SOLN PO SCH ×2 (17:16→23:27)
--- NOTE | 2017-07-30 17:41 | Progress Note ---
DATE: INFECTIOUS DISEASE PROGRESS NOTE Mr. Randolph continues to be comfortable. Follows simple command PHYSICAL EXAMINATION VITAL SIGNS: Stable. Afebrile. HEENT: He does not appear icteric. NECK: Supple. CHEST: A few rhonchi. HEART: S1 and S2. No S3 or S4, no murmur. ABDOMEN: Soft. Bowel sounds present. No tenderness. EXTREMITIES: No edema. His white count today is 19.18, which is higher than yesterday. Hemoglobin is 10. Hematocrit is 33. Sodium 150, potassium 3.2, creatinine 0.62. IMPRESSION 1. Bacteremia, coagulase-negative staph, probably contamination. 2. Pneumonia, bacterial. 3. CT scan was done, abdomen and pelvis, showed dilatation of the transverse colon and left kidney, right upper lobe maybe infection. Concerned about colitis with worsening of leukocytosis. Plan is to discontinue meropenem, discontinue vancomycin. Start him on vancomycin and IV metronidazole. Will check CBC, will check chem panel. Will follow with you. Job#: [id number] ELIANE
--- NOTE | 2017-07-30 18:03 | Diagnostic Imaging Report ---
EXAMINATION: CHEST SINGLE (PORTABLE) INDICATION: \S\pneumoinia COMPARISON: Chest x-ray 07/24/2017. 07/23/2017. FINDINGS: AP view TUBES and LINES: Tracheostomy tube remain unchanged. LUNGS: Lungs are not well inflated. Bilateral multifocal pneumonia is again seen. Slight improvement in the left lung apex and in the right lung base. New superimposed venous congestion. PLEURA: No pleural effusion or pneumothorax. HEART AND MEDIASTINUM: The cardiomediastinal silhouette is unremarkable. Aorta is tortuous. BONES AND SOFT TISSUES: No acute osseous lesion. Soft tissues are unremarkable. UPPER ABDOMEN: No free air under the diaphragm. IMPRESSION: Bilateral multifocal pneumonia is again seen. Slight improvement in the left lung apex and in the right lung base. New superimposed venous congestion. Signed by: Dr. Silas Colorado M.D. on 07/30/2017 6:00 PM
[2017-07-30 18:06] LABS: BASOPHILS # (AUTO) 0.1 (0.0-0.1); BASOPHILS % 0.3 % (0.0-1.0); EOSINOPHILS # (AUTO) 0.3 (0.0-0.4); EOSINOPHILS % 1.5 % (0.0-6.0); HEMATOCRIT 35.1 % (38.2-49.6); HEMOGLOBIN 11.1 g/dL (14.0-18.0); LYMPHOCYTES # (AUTO) 1.9 (1.0-3.2); LYMPHOCYTES % 9.9 % (18.0-39.1); MEAN CORPUSCULAR HEMOGLOBIN 30.8 pg (28-32); MEAN CORPUSCULAR HGB CONC 31.6 g/dL (31-35); MEAN CORPUSCULAR VOLUME 97.5 fL (81-99); MONOCYTES # (AUTO) 1.4 (0.2-0.8); NEUTROPHILS # (AUTO) 15.6 (2.1-6.9); NEUTROPHILS % 79.9 % (38.7-80.0); PLATELET COUNT 303 x10e3/uL (140-360)
[2017-07-30] MEDS: METRONIDAZOLE 500MG/NS 100ML 100 ML IV SCH ×2 (18:14→23:27)
[2017-07-31] VITALS: BP 153/93
[2017-07-31] MEDS: IPRATROPIUM BROMIDE 0.02% 2.5 ML NEB NEB SCH ×4 (01:00→19:17)
[2017-07-31] MEDS: VANCOMYCIN 250MG/5ML ORAL SOLN PO SCH ×3 (05:58→17:02)
[2017-07-31] MEDS: SOD CHL 0.45%/POT CHL 20MEQ 1,000 ML IV SCH ×3 (05:58→22:45)
[2017-07-31] MEDS: METRONIDAZOLE 500MG/NS 100ML 100 ML IV SCH ×3 (05:58→17:49)
[2017-07-31 08:35] VITALS: BP 154/76
[2017-07-31] MEDS: DIGOXIN INJ 0.25 MG/ML 2 ML AMP IV SCH (10:00)
[2017-07-31] MEDS: LEVOTHYROXINE SODIUM 100 MCG/VIAL IV SCH (10:00)
[2017-07-31] MEDS: BALSAM PERU/CASTOR OIL 60 GM OINT...G. TP SCH ×3 (10:00→21:00)
[2017-07-31] MEDS: ASPIRIN 325 MG TAB PO SCH (10:00)
[2017-07-31 11:00] VITALS: BP 152/94
[2017-07-31] MEDS ORDERED: POTASSIUM CHLORIDE 10 MEQ TABCR PEG ONE (11:00)
[2017-07-31] MEDS ORDERED: POTASSIUM CHLORIDE 20MEQ/15ML UDC PEG NR (11:30)
[2017-07-31] MEDS: HYDROMORPHONE 2MG/ML INJ IV PRN ×3 (12:28→22:55)
[2017-07-31] MEDS: FLUCONAZOLE 200 MG/100 ML 100 ML IV SCH (12:28)
--- NOTE | 2017-07-31 13:04 | Progress Note ---
DATE: INFECTIOUS DISEASE PROGRESS NOTE SUBJECTIVE: Mr. Randolph is stable. There is no change. His laboratory data reviewed. PHYSICAL EXAMINATION GENERAL: He is alert. VITAL SIGNS: Stable. Afebrile. HEENT: He does not appear icteric. NECK: Supple. CHEST: Clear. HEART: S1 and S2. No S3 or S4, no murmur. ABDOMEN: Soft. IMPRESSION 1. Pneumonia, resolved, probably aspiration. 2. Status post trach. 3. Status post craniotomy. 4. Leukocytosis, getting worse. 5. Colitis, seems to be clinically stable. Will recheck CBC in the morning. Job#: [id number] EV
[2017-07-31 16:00] VITALS: BP 172/92
[2017-07-31] MEDS ORDERED: AMLODIPINE BESYLATE 5 MG TAB PO ONE (16:15)
[2017-07-31] MEDS ORDERED: AMLODIPINE BESYLATE 5 MG TAB PO SCH (17:00)
[2017-07-31 19:45] VITALS: BP 139/81
[2017-07-31 20:00] VITALS: BP 139/81
[2017-08-01] VITALS: BP 144/84
[2017-08-01] MEDS: METRONIDAZOLE 500MG/NS 100ML 100 ML IV SCH ×4 (00:22→17:05)
[2017-08-01] MEDS: VANCOMYCIN 250MG/5ML ORAL SOLN PO SCH ×4 (00:22→17:05)
[2017-08-01] MEDS: BALSAM PERU/CASTOR OIL 60 GM OINT...G. TP SCH ×3 (02:55→14:15)
[2017-08-01] MEDS: IPRATROPIUM BROMIDE 0.02% 2.5 ML NEB NEB SCH ×4 (03:16→19:50)
[2017-08-01 04:00] VITALS: BP 161/94
[2017-08-01 07:04] LABS: BASOPHILS # (AUTO) 0.1 (0.0-0.1); BASOPHILS % 0.3 % (0.0-1.0); EOSINOPHILS # (AUTO) 0.4 (0.0-0.4); HEMATOCRIT 34.5 % (38.2-49.6); HEMOGLOBIN 10.8 g/dL (14.0-18.0); LYMPHOCYTES # (AUTO) 1.6 (1.0-3.2); LYMPHOCYTES % 8.7 % (18.0-39.1); MEAN CORPUSCULAR HEMOGLOBIN 30.8 pg (28-32); MEAN CORPUSCULAR HGB CONC 31.3 g/dL (31-35); MEAN CORPUSCULAR VOLUME 98.3 fL (81-99); MONOCYTES # (AUTO) 0.9 (0.2-0.8); MONOCYTES % 4.7 % (4.4-11.3); NEUTROPHILS # (AUTO) 15.6 (2.1-6.9); NEUTROPHILS % 83.4 % (38.7-80.0); PLATELET COUNT 254 x10e3/uL (140-360); RED BLOOD COUNT 3.51 x10e6/uL (4.3-5.7); RED CELL DISTRIBUTION WIDTH 15.2 % (11.7-14.4)
[2017-08-01 07:33] LABS: ANION GAP 13.7 mmol/L (8-16); BLOOD UREA NITROGEN 14 mg/dL (7-26); BUN/CREATININE RATIO 23 (6-25); CALCIUM 8.4 mg/dL (8.4-10.2); CARBON DIOXIDE 33 mmol/L (22-29); CHLORIDE 105 mmol/L (98-107); EST GLOMERULAR FILTRATION RATE > 60 ML/MIN (60-); GLUCOSE 132 mg/dL (74-118); MAGNESIUM 1.7 MG/DL (1.3-2.1); PHOSPHORUS 2.6 MG/DL (2.3-4.7); POTASSIUM 3.7 mmol/L (3.5-5.1); SODIUM 148 mmol/L (136-145)
[2017-08-01 08:00] VITALS: BP 171/93
[2017-08-01] MEDS: AMLODIPINE BESYLATE 5 MG TAB PO SCH ×2 (09:30→21:56)
[2017-08-01] MEDS: ASPIRIN 325 MG TAB PO SCH (09:30)
[2017-08-01] MEDS: DIGOXIN INJ 0.25 MG/ML 2 ML AMP IV SCH (09:30)
[2017-08-01] MEDS: LEVOTHYROXINE SODIUM 100 MCG/VIAL IV SCH (09:30)
[2017-08-01] MEDS: HYDROMORPHONE 2MG/ML INJ IV PRN ×3 (09:30→20:46)
[2017-08-01] MEDS: FLUCONAZOLE 200 MG/100 ML 100 ML IV SCH (11:37)
[2017-08-01 16:00] VITALS: BP 144/85
[2017-08-01] MEDS: SOD CHL 0.45%/POT CHL 20MEQ 1,000 ML IV SCH (17:05)
[2017-08-01 20:00] VITALS: BP 154/93
[2017-08-02] MEDS: VANCOMYCIN 250MG/5ML ORAL SOLN PO SCH ×3 (00:21→12:00)
[2017-08-02 00:30] VITALS: BP 135/86
[2017-08-02] MEDS: IPRATROPIUM BROMIDE 0.02% 2.5 ML NEB NEB SCH ×4 (01:25→19:48)
[2017-08-02 04:00] VITALS: BP 144/80
[2017-08-02] MEDS: BALSAM PERU/CASTOR OIL 60 GM OINT...G. TP SCH ×4 (04:08→21:00)
[2017-08-02] MEDS: HYDROMORPHONE 2MG/ML INJ IV PRN ×2 (06:00→14:16)
[2017-08-02] MEDS: METRONIDAZOLE 500MG/NS 100ML 100 ML IV SCH ×4 (06:00→18:07)
[2017-08-02 06:46] LABS: BASOPHILS % 0.2 % (0.0-1.0); EOSINOPHILS # (AUTO) 0.2 (0.0-0.4); EOSINOPHILS % 1.2 % (0.0-6.0); HEMATOCRIT 32.8 % (38.2-49.6); HEMOGLOBIN 10.4 g/dL (14.0-18.0); LYMPHOCYTES # (AUTO) 1.2 (1.0-3.2); LYMPHOCYTES % 6.2 % (18.0-39.1); MEAN CORPUSCULAR HEMOGLOBIN 30.4 pg (28-32); MEAN CORPUSCULAR HGB CONC 31.7 g/dL (31-35); MEAN CORPUSCULAR VOLUME 95.9 fL (81-99); MONOCYTES # (AUTO) 0.9 (0.2-0.8); MONOCYTES % 4.5 % (4.4-11.3); NEUTROPHILS # (AUTO) 16.6 (2.1-6.9); NEUTROPHILS % 86.8 % (38.7-80.0); PLATELET COUNT 303 x10e3/uL (140-360); RED BLOOD COUNT 3.42 x10e6/uL (4.3-5.7)
[2017-08-02] MEDS: SOD CHL 0.45%/POT CHL 20MEQ 1,000 ML IV SCH ×2 (07:00→19:40)
--- NOTE | 2017-08-02 07:10 | Diagnostic Imaging Report ---
EXAMINATION: CHEST SINGLE (PORTABLE) INDICATION: Follow-up intubation COMPARISON: 07/30/2017 FINDINGS: TUBES and LINES: Tracheostomy tube is stable. LUNGS: Lungs are well inflated. Minimal left lung base atelectasis. There is no evidence of pneumonia or pulmonary edema. PLEURA: No pleural effusion or pneumothorax. HEART AND MEDIASTINUM: The cardiomediastinal silhouette is unremarkable. BONES AND SOFT TISSUES: No acute osseous lesion. Soft tissues are unremarkable. UPPER ABDOMEN: No free air under the diaphragm. IMPRESSION: No acute thoracic abnormality. Signed by: Dr. Fortunato Moreno M.D. on 08/02/2017 7:07 AM
[2017-08-02 07:19] LABS: ANION GAP 12.3 mmol/L (8-16); BLOOD UREA NITROGEN 12 mg/dL (7-26); BUN/CREATININE RATIO 20 (6-25); CALCIUM 8.3 mg/dL (8.4-10.2); CARBON DIOXIDE 36 mmol/L (22-29); CHLORIDE 102 mmol/L (98-107); EST GLOMERULAR FILTRATION RATE > 60 ML/MIN (60-); GLUCOSE 158 mg/dL (74-118); POTASSIUM 3.3 mmol/L (3.5-5.1); SODIUM 147 mmol/L (136-145)
[2017-08-02 08:00] VITALS: BP 156/82
[2017-08-02] MEDS: LEVOTHYROXINE SODIUM 100 MCG/VIAL IV SCH (09:36)
[2017-08-02] MEDS: DIGOXIN INJ 0.25 MG/ML 2 ML AMP IV SCH (09:36)
[2017-08-02] MEDS: ASPIRIN 325 MG TAB PO SCH (09:36)
[2017-08-02] MEDS: AMLODIPINE BESYLATE 5 MG TAB PO SCH ×2 (09:36→21:00)
[2017-08-02] MEDS: FLUCONAZOLE 200 MG/100 ML 100 ML IV SCH (11:33)
[2017-08-02 12:00] VITALS: BP 158/92
[2017-08-02 20:15] VITALS: BP 155/99
[2017-08-03 00:04] VITALS: BP_SYST 140; BP_SYST 155; BP_DIAS 75; BP_DIAS 99
[2017-08-03] MEDS: IPRATROPIUM BROMIDE 0.02% 2.5 ML NEB NEB SCH ×4 (01:40→19:15)
[2017-08-03 04:00] VITALS: BP 155/81
[2017-08-03] MEDS: METRONIDAZOLE 500MG/NS 100ML 100 ML IV SCH ×4 (06:03→17:42)
[2017-08-03 06:21] LABS: BASOPHILS % 0.2 % (0.0-1.0); EOSINOPHILS # (AUTO) 0.4 (0.0-0.4); EOSINOPHILS % 2.1 % (0.0-6.0); HEMATOCRIT 33.3 % (38.2-49.6); HEMOGLOBIN 10.4 g/dL (14.0-18.0); LYMPHOCYTES # (AUTO) 1.7 (1.0-3.2); LYMPHOCYTES % 9.2 % (18.0-39.1); MEAN CORPUSCULAR HEMOGLOBIN 30.2 pg (28-32); MEAN CORPUSCULAR HGB CONC 31.2 g/dL (31-35); MEAN CORPUSCULAR VOLUME 96.8 fL (81-99); MONOCYTES # (AUTO) 0.9 (0.2-0.8); MONOCYTES % 4.8 % (4.4-11.3); NEUTROPHILS # (AUTO) 15.1 (2.1-6.9); PLATELET COUNT 283 x10e3/uL (140-360); RED BLOOD COUNT 3.44 x10e6/uL (4.3-5.7); RED CELL DISTRIBUTION WIDTH 15.1 % (11.7-14.4)
[2017-08-03 06:40] LABS: ANION GAP 11.1 mmol/L (8-16); BLOOD UREA NITROGEN 12 mg/dL (7-26); BUN/CREATININE RATIO 19 (6-25); CALCIUM 8.3 mg/dL (8.4-10.2); CARBON DIOXIDE 37 mmol/L (22-29); CHLORIDE 101 mmol/L (98-107); CREATININE, SERUM 0.63 mg/dL (0.72-1.25); EST GLOMERULAR FILTRATION RATE > 60 ML/MIN (60-); GLUCOSE 118 mg/dL (74-118); POTASSIUM 3.1 mmol/L (3.5-5.1); SODIUM 146 mmol/L (136-145)
[2017-08-03 08:00] VITALS: BP 131/82
[2017-08-03] MEDS: LEVOTHYROXINE SODIUM 100 MCG/VIAL IV SCH (09:15)
[2017-08-03] MEDS: DIGOXIN INJ 0.25 MG/ML 2 ML AMP IV SCH (09:15)
[2017-08-03] MEDS: ASPIRIN 325 MG TAB PO SCH (09:15)
[2017-08-03] MEDS: AMLODIPINE BESYLATE 5 MG TAB PO SCH ×2 (09:15→21:00)
[2017-08-03] MEDS: BALSAM PERU/CASTOR OIL 60 GM OINT...G. TP SCH ×3 (09:15→21:00)
[2017-08-03] MEDS: SOD CHL 0.45%/POT CHL 20MEQ 1,000 ML IV SCH (09:16)
[2017-08-03] MEDS ORDERED: POTASSIUM CHLORIDE 10 MEQ TABCR PEG ONE ×2 (11:00→15:30)
[2017-08-03 12:00] VITALS: BP 151/86
[2017-08-03] MEDS: FLUCONAZOLE 200 MG/100 ML 100 ML IV SCH (12:00)
[2017-08-03] MEDS: VANCOMYCIN 750MG/NS 150ML IVPB 150 ML IV SCH ×2 (12:00→23:30)
[2017-08-03] MEDS: POTASSIUM CHL 40 MEQ in DEXTROSE 5% 1,000 ML IV SCH ×2 (13:00→21:12)
[2017-08-03 16:00] VITALS: BP 139/83
[2017-08-03 20:00] VITALS: BP 140/69
[2017-08-04] VITALS: BP 129/67
[2017-08-04] MEDS: IPRATROPIUM BROMIDE 0.02% 2.5 ML NEB NEB SCH ×4 (02:20→20:02)
[2017-08-04 04:00] VITALS: BP 129/73
[2017-08-04] MEDS: METRONIDAZOLE 500MG/NS 100ML 100 ML IV SCH ×4 (06:00→18:54)
[2017-08-04 06:27] LABS: BASOPHILS % 0.2 % (0.0-1.0); EOSINOPHILS # (AUTO) 0.3 (0.0-0.4); EOSINOPHILS % 2.1 % (0.0-6.0); HEMATOCRIT 30.6 % (38.2-49.6); HEMOGLOBIN 9.8 g/dL (14.0-18.0); LYMPHOCYTES # (AUTO) 1.4 (1.0-3.2); MEAN CORPUSCULAR HEMOGLOBIN 30.8 pg (28-32); MEAN CORPUSCULAR VOLUME 96.2 fL (81-99); MONOCYTES # (AUTO) 0.9 (0.2-0.8); MONOCYTES % 5.9 % (4.4-11.3); NEUTROPHILS # (AUTO) 12.8 (2.1-6.9); NEUTROPHILS % 82.3 % (38.7-80.0); PLATELET COUNT 297 x10e3/uL (140-360); RED BLOOD COUNT 3.18 x10e6/uL (4.3-5.7)
[2017-08-04 06:46] LABS: ANION GAP 10.2 mmol/L (8-16); BLOOD UREA NITROGEN 12 mg/dL (7-26); BUN/CREATININE RATIO 19 (6-25); CALCIUM 8.1 mg/dL (8.4-10.2); CARBON DIOXIDE 35 mmol/L (22-29); CHLORIDE 101 mmol/L (98-107); CREATININE, SERUM 0.64 mg/dL (0.72-1.25); EST GLOMERULAR FILTRATION RATE > 60 ML/MIN (60-); GLUCOSE 115 mg/dL (74-118); POTASSIUM 3.2 mmol/L (3.5-5.1); SODIUM 143 mmol/L (136-145)
[2017-08-04 06:58] LABS: MAGNESIUM 1.3 MG/DL (1.3-2.1); PHOSPHORUS 2.9 MG/DL (2.3-4.7)
[2017-08-04] MEDS: AMLODIPINE BESYLATE 5 MG TAB PO SCH ×2 (07:46→21:00)
[2017-08-04] MEDS: ASPIRIN 325 MG TAB PO SCH (07:46)
[2017-08-04 08:00] VITALS: BP 156/98
[2017-08-04] MEDS: POTASSIUM CHL 40 MEQ in DEXTROSE 5% 1,000 ML IV SCH ×2 (08:00→17:55)
[2017-08-04] MEDS: DIGOXIN INJ 0.25 MG/ML 2 ML AMP IV SCH (08:28)
[2017-08-04] MEDS: LEVOTHYROXINE SODIUM 100 MCG/VIAL IV SCH (08:28)
[2017-08-04] MEDS: BALSAM PERU/CASTOR OIL 60 GM OINT...G. TP SCH ×3 (09:51→21:00)
[2017-08-04 12:00] VITALS: BP 153/76
[2017-08-04] MEDS ORDERED: POTASSIUM CHLORIDE 20MEQ/100ML 100 ML IV ONE (12:00)
[2017-08-04] MEDS ORDERED: MAGNESIUM SULFATE 2GM/50ML 50 ML IV ONE (12:00)
[2017-08-04] MEDS: FLUCONAZOLE 200 MG/100 ML 100 ML IV SCH (13:00)
[2017-08-04] MEDS: VANCOMYCIN 750MG/NS 150ML IVPB 150 ML IV SCH ×2 (13:00→23:30)
[2017-08-04] MEDS ORDERED: POTASSIUM PHOSPHATE 20 MM in SODIUM CHLORIDE 0.9% 250ML 250 ML IV ONE (14:00)
--- NOTE | 2017-08-04 15:47 | Consultation ---
DATE OF CONSULTATION: GASTROENTEROLOGY CONSULTATION REFERRING PHYSICIAN: Dr. Elkins. REASON FOR CONSULTATION: Feeding tube malfunction. HISTORY OF PRESENT ILLNESS: Mr. Randolph is a 61-year-old man with significant past history. He apparently came in with septic shock and aspiration pneumonia. He has a feeding tube. It does not look like the standard gastroenterology placed tube, is an 18 Syriac and may be internally fixed or actually a J tube. He has a history of a multifocal pneumonia, MRSA. Now his feeding tube is clogged. Multiple bedside maneuvers including trying to declog it with a scope cleaning tool have been unsuccessful. He is not able to provide any history for himself. PAST MEDICAL HISTORY 1. Craniotomy. 2. Aspiration. 3. Tracheostomy. 4. Feeding tube, question J tube. 5. Decubitus ulcers. 6. History of CVA. 7. Hypothyroidism. 8. Dyslipidemia. 9. Atrial fibrillation. 10. Hypertension. MEDICATIONS AND ALLERGIES: Reviewed. Please see MAR medication reconciliation form. SOCIAL HISTORY: He has been at [facility]. No mention of alcohol, tobacco or illicit substance in the chart. FAMILY HISTORY: Patient is unable to provide. No significant history per chart. REVIEW OF SYSTEMS: Unobtainable due to altered mental status. PHYSICAL EXAMINATION GENERAL: He is awake. He is calm, in no acute distress. HEENT: Pupils equal, round, reactive to light. His right skull is deformed. NECK: Supple. LUNGS: Coarse due to trach. CARDIOVASCULAR: S1/S2. ABDOMEN: Soft, nontender and nondistended. There is a tube in the left upper quadrant which is 18 Syriac and not the standard gastroenterology placed PEG tube. There is no external fixation of the tube. It does appear to be in a well-formed track, likely been there for some time. EXTREMITIES: He has decubitus. He has low muscle mass and decreased range of motion. PSYCHIATRIC: Unable to assess. NEUROLOGIC: Nonverbal. The electronic health record is reviewed for laboratory and radiologic studies as well as history. ASSESSMENT 1. Dysphagia. 2. Aspiration. 3. Feeding tube, possible jejunostomy tube versus radiology or surgically placed gastrotomy tube which is clogged. Bedside maneuvers including trying to clean it with a scope brush were not successful. It will need to be replaced. I am unable to see the images for his CAT scan as they will not pull up right now on multiple different computers to find out if it will show if the tube is a G tube or a J tube. I suspect even if it is not a J tube, given his history of aspiration he would benefit from a J-tube placement. I will go ahead and ask Interventional Radiology to see him and replace the current clogged tube with a J tube. I left a message to discuss this with his , with the hospital callback number. Thank you very much for asking me to see Mr. Randolph. Any questions or concerns, please do not hesitate to contact me. Job#: [id number] EV
[2017-08-04 16:00] VITALS: BP 138/86
[2017-08-04 20:00] VITALS: BP 132/84
[2017-08-05] VITALS (8 sets, daily range): BP systolic 129–162; BP diastolic 66–94
[2017-08-05] MEDS: IPRATROPIUM BROMIDE 0.02% 2.5 ML NEB NEB SCH ×4 (01:32→19:47)
[2017-08-05] MEDS: POTASSIUM CHL 40 MEQ in DEXTROSE 5% 1,000 ML IV SCH ×3 (03:48→21:20)
[2017-08-05] MEDS: METRONIDAZOLE 500MG/NS 100ML 100 ML IV SCH ×4 (06:00→18:15)
[2017-08-05 07:07] LABS: BASOPHILS # (AUTO) 0.1 (0.0-0.1); BASOPHILS % 0.3 % (0.0-1.0); EOSINOPHILS # (AUTO) 0.2 (0.0-0.4); EOSINOPHILS % 1.3 % (0.0-6.0); HEMATOCRIT 32.3 % (38.2-49.6); HEMOGLOBIN 10.2 g/dL (14.0-18.0); LYMPHOCYTES # (AUTO) 1.6 (1.0-3.2); LYMPHOCYTES % 10.9 % (18.0-39.1); MEAN CORPUSCULAR HEMOGLOBIN 29.8 pg (28-32); MEAN CORPUSCULAR HGB CONC 31.6 g/dL (31-35); MEAN CORPUSCULAR VOLUME 94.4 fL (81-99); NEUTROPHILS # (AUTO) 11.7 (2.1-6.9); PLATELET COUNT 309 x10e3/uL (140-360); RED BLOOD COUNT 3.42 x10e6/uL (4.3-5.7)
[2017-08-05 07:46] LABS: ALANINE AMINOTRANSFERASE 11 IU/L (0-55); ALBUMIN 1.7 g/dL (3.5-5.0); ALBUMIN/GLOBULIN RATIO 0.4 (0.8-2.0); ALKALINE PHOSPHATASE 107 IU/L (40-150); ANION GAP 13.6 mmol/L (8-16); BLOOD UREA NITROGEN 13 mg/dL (7-26); BUN/CREATININE RATIO 21 (6-25); CALCIUM 8.1 mg/dL (8.4-10.2); CARBON DIOXIDE 32 mmol/L (22-29); CHLORIDE 103 mmol/L (98-107); CREATININE, SERUM 0.63 mg/dL (0.72-1.25); EST GLOMERULAR FILTRATION RATE > 60 ML/MIN (60-); GLUCOSE 108 mg/dL (74-118); MAGNESIUM 1.5 MG/DL (1.3-2.1); PHOSPHORUS 3.3 MG/DL (2.3-4.7); POTASSIUM 3.6 mmol/L (3.5-5.1); SODIUM 145 mmol/L (136-145)
[2017-08-05] MEDS: HYDROMORPHONE 2MG/ML INJ IV PRN ×3 (08:00→18:23)
[2017-08-05] MEDS: DIGOXIN INJ 0.25 MG/ML 2 ML AMP IV SCH (08:48)
[2017-08-05] MEDS: LEVOTHYROXINE SODIUM 100 MCG/VIAL IV SCH (08:48)
[2017-08-05] MEDS: ASPIRIN 325 MG TAB PO SCH (08:49)
[2017-08-05] MEDS: AMLODIPINE BESYLATE 5 MG TAB PO SCH ×2 (08:49→21:20)
[2017-08-05] MEDS: BALSAM PERU/CASTOR OIL 60 GM OINT...G. TP SCH ×3 (10:11→21:20)
[2017-08-05] MEDS: FLUCONAZOLE 200 MG/100 ML 100 ML IV SCH (12:27)
[2017-08-05] MEDS ORDERED: LIDOCAINE HCL 2% LOCAL 20 ML VIAL ONE (14:01)
[2017-08-05] MEDS ORDERED: IOPAMIDOL 300MG/ML 50ML INFUS..BTL IV ONE (14:02)
[2017-08-05] MEDS ORDERED: SODIUM CHLORIDE 0.9% 500ML 1,000 ML ONE (14:02)
[2017-08-05] MEDS: VANCOMYCIN 750MG/NS 150ML IVPB 150 ML IV SCH (15:20)
[2017-08-06] MEDS: VANCOMYCIN 750MG/NS 150ML IVPB 150 ML IV SCH ×2 (00:29→11:50)
[2017-08-06] MEDS: IPRATROPIUM BROMIDE 0.02% 2.5 ML NEB NEB SCH ×4 (01:12→19:45)
[2017-08-06 05:15] VITALS: BP 102/84
[2017-08-06] MEDS: METRONIDAZOLE 500MG/NS 100ML 100 ML IV SCH ×5 (05:35→23:18)
[2017-08-06] MEDS: BALSAM PERU/CASTOR OIL 60 GM OINT...G. TP SCH ×2 (09:00→14:15)
[2017-08-06] MEDS: AMLODIPINE BESYLATE 5 MG TAB PO SCH ×3 (09:00→21:00)
[2017-08-06 09:13] VITALS: BP 110/63
[2017-08-06] MEDS: FLUCONAZOLE 200 MG/100 ML 100 ML IV SCH (10:09)
[2017-08-06] MEDS: LEVOTHYROXINE SODIUM 100 MCG/VIAL IV SCH (10:09)
[2017-08-06] MEDS: ASPIRIN 325 MG TAB PO SCH (10:09)
[2017-08-06] MEDS: DIGOXIN INJ 0.25 MG/ML 2 ML AMP IV SCH (10:09)
[2017-08-06] MEDS: POTASSIUM CHL 40 MEQ in DEXTROSE 5% 1,000 ML IV SCH ×2 (10:10→22:55)
[2017-08-06] MEDS: HYDROMORPHONE 2MG/ML INJ IV PRN ×2 (11:00→20:30)
[2017-08-06 12:21] VITALS: BP 107/71
[2017-08-06 20:15] VITALS: BP 128/75
[2017-08-06 20:28] VITALS: BP 128/75
[2017-08-07] MEDS: VANCOMYCIN 750MG/NS 150ML IVPB 150 ML IV SCH ×3 (00:10→13:10)
[2017-08-07 00:15] VITALS: BP 111/51
[2017-08-07] MEDS: IPRATROPIUM BROMIDE 0.02% 2.5 ML NEB NEB SCH ×4 (01:05→20:15)
[2017-08-07] MEDS: METRONIDAZOLE 500MG/NS 100ML 100 ML IV SCH ×3 (06:15→17:02)
[2017-08-07] MEDS: POTASSIUM CHL 40 MEQ in DEXTROSE 5% 1,000 ML IV SCH ×2 (06:32→17:02)
[2017-08-07 08:00] VITALS: BP 120/67
[2017-08-07] MEDS: FLUCONAZOLE 200 MG/100 ML 100 ML IV SCH (08:00)
[2017-08-07 09:00] VITALS: BP 120/67
[2017-08-07] MEDS: LEVOTHYROXINE SODIUM 100 MCG/VIAL IV SCH (09:00)
[2017-08-07] MEDS: COLLAGENASE OINTMENT 30 GM TUBE TP SCH (09:38)
[2017-08-07] MEDS: AMLODIPINE BESYLATE 5 MG TAB PO SCH ×2 (09:38→21:30)
[2017-08-07] MEDS: ASPIRIN 325 MG TAB PO SCH (09:38)
[2017-08-07] MEDS: DIGOXIN INJ 0.25 MG/ML 2 ML AMP IV SCH (09:38)
[2017-08-07] MEDS: BALSAM PERU/CASTOR OIL 60 GM OINT...G. TP SCH (09:38)
[2017-08-07 12:00] VITALS: BP 137/81
[2017-08-07] MEDS: HYDROMORPHONE 2MG/ML INJ IV PRN ×3 (14:00→22:15)
[2017-08-07 16:00] VITALS: BP 97/62
[2017-08-07 20:00] VITALS: BP 133/95
[2017-08-08] VITALS: BP 107/53
[2017-08-08] MEDS: VANCOMYCIN 750MG/NS 150ML IVPB 150 ML IV SCH ×3 (00:10→23:30)
[2017-08-08] MEDS: METRONIDAZOLE 500MG/NS 100ML 100 ML IV SCH ×4 (00:54→18:05)
[2017-08-08] MEDS: IPRATROPIUM BROMIDE 0.02% 2.5 ML NEB NEB SCH ×3 (01:00→21:00)
[2017-08-08] MEDS: HYDROMORPHONE 2MG/ML INJ IV PRN ×3 (05:00→18:05)
[2017-08-08 06:20] LABS: BASOPHILS # (AUTO) 0.1 (0.0-0.1); BASOPHILS % 0.5 % (0.0-1.0); EOSINOPHILS # (AUTO) 0.6 (0.0-0.4); EOSINOPHILS % 5.4 % (0.0-6.0); HEMATOCRIT 27.2 % (38.2-49.6); HEMOGLOBIN 8.6 g/dL (14.0-18.0); LYMPHOCYTES # (AUTO) 1.2 (1.0-3.2); LYMPHOCYTES % 11.1 % (18.0-39.1); MEAN CORPUSCULAR HEMOGLOBIN 30.1 pg (28-32); MEAN CORPUSCULAR HGB CONC 31.6 g/dL (31-35); MEAN CORPUSCULAR VOLUME 95.1 fL (81-99); MONOCYTES # (AUTO) 0.9 (0.2-0.8); MONOCYTES % 8.4 % (4.4-11.3); NEUTROPHILS # (AUTO) 7.7 (2.1-6.9); PLATELET COUNT 316 x10e3/uL (140-360); RED BLOOD COUNT 2.86 x10e6/uL (4.3-5.7); RED CELL DISTRIBUTION WIDTH 15.4 % (11.7-14.4)
[2017-08-08 06:41] LABS: ANION GAP 12.2 mmol/L (8-16); BLOOD UREA NITROGEN 12 mg/dL (7-26); BUN/CREATININE RATIO 19 (6-25); CALCIUM 8.1 mg/dL (8.4-10.2); CARBON DIOXIDE 31 mmol/L (22-29); CHLORIDE 103 mmol/L (98-107); CREATININE, SERUM 0.64 mg/dL (0.72-1.25); EST GLOMERULAR FILTRATION RATE > 60 ML/MIN (60-); GLUCOSE 128 mg/dL (74-118); MAGNESIUM 1.6 MG/DL (1.3-2.1); PHOSPHORUS 3.7 MG/DL (2.3-4.7); POTASSIUM 4.2 mmol/L (3.5-5.1); SODIUM 142 mmol/L (136-145)
[2017-08-08 08:00] VITALS: BP 100/55
[2017-08-08 09:00] VITALS: BP 120/67
[2017-08-08] MEDS: AMLODIPINE BESYLATE 5 MG TAB PO SCH ×2 (09:00→21:00)
[2017-08-08] MEDS: FLUCONAZOLE 200 MG/100 ML 100 ML IV SCH (09:57)
[2017-08-08] MEDS: DIGOXIN INJ 0.25 MG/ML 2 ML AMP IV SCH (09:58)
[2017-08-08] MEDS: COLLAGENASE OINTMENT 30 GM TUBE TP SCH (09:59)
[2017-08-08] MEDS: BALSAM PERU/CASTOR OIL 60 GM OINT...G. TP SCH (09:59)
[2017-08-08] MEDS: LEVOTHYROXINE SODIUM 100 MCG/VIAL IV SCH (10:00)
[2017-08-08] MEDS: ASPIRIN 325 MG TAB PO SCH (10:00)
[2017-08-08 12:00] VITALS: BP 116/56
[2017-08-08 16:00] VITALS: BP 117/66
[2017-08-09] MEDS: HYDROMORPHONE 2MG/ML INJ IV PRN ×3 (00:10→21:45)
[2017-08-09] MEDS: METRONIDAZOLE 500MG/NS 100ML 100 ML IV SCH ×3 (00:45→12:06)
[2017-08-09] MEDS ORDERED: SODIUM CHLORIDE 0.9% 250ML 250 ML ONE (00:53)
[2017-08-09 01:39] VITALS: BP 117/66
[2017-08-09] MEDS: IPRATROPIUM BROMIDE 0.02% 2.5 ML NEB NEB SCH ×4 (02:00→19:45)
[2017-08-09] MEDS: DIGOXIN INJ 0.25 MG/ML 2 ML AMP IV SCH (08:15)
[2017-08-09 08:25] VITALS: BP 122/73
[2017-08-09 09:15] VITALS: BP 122/73
[2017-08-09] MEDS: ASPIRIN 325 MG TAB PO SCH (09:15)
[2017-08-09] MEDS: COLLAGENASE OINTMENT 30 GM TUBE TP SCH (09:15)
[2017-08-09] MEDS: BALSAM PERU/CASTOR OIL 60 GM OINT...G. TP SCH (09:15)
[2017-08-09] MEDS: AMLODIPINE BESYLATE 5 MG TAB PO SCH ×2 (09:15→21:00)
[2017-08-09] MEDS: FLUCONAZOLE 200 MG/100 ML 100 ML IV SCH (09:15)
[2017-08-09 11:24] VITALS: BP 116/73
[2017-08-09] MEDS: LEVOTHYROXINE SODIUM 100 MCG/VIAL IV SCH (11:27)
[2017-08-09] MEDS: VANCOMYCIN 750MG/NS 150ML IVPB 150 ML IV SCH (14:39)
[2017-08-09 15:53] VITALS: BP 124/76
[2017-08-09 20:00] VITALS: BP_SYST 119; BP_SYST 124; BP_DIAS 76; BP_DIAS 91
[2017-08-10] VITALS (8 sets, daily range): BP systolic 110–141; BP diastolic 72–78
[2017-08-10] MEDS: IPRATROPIUM BROMIDE 0.02% 2.5 ML NEB NEB SCH ×4 (01:25→19:42)
[2017-08-10] MEDS: VANCOMYCIN 750MG/NS 150ML IVPB 150 ML IV SCH ×2 (02:30→15:44)
[2017-08-10] MEDS: HYDROMORPHONE 2MG/ML INJ IV PRN ×3 (05:47→20:37)
[2017-08-10] MEDS: LEVOTHYROXINE SODIUM 100 MCG TAB PO SCH (05:47)
[2017-08-10] MEDS: FLUCONAZOLE 200 MG/100 ML 100 ML IV SCH (08:23)
[2017-08-10] MEDS: AMLODIPINE BESYLATE 5 MG TAB PO SCH ×2 (09:00→21:00)
[2017-08-10 09:29] LABS: BASOPHILS # (AUTO) 0.1 (0.0-0.1); BASOPHILS % 0.7 % (0.0-1.0); EOSINOPHILS # (AUTO) 0.4 (0.0-0.4); EOSINOPHILS % 4.5 % (0.0-6.0); HEMATOCRIT 30.1 % (38.2-49.6); HEMOGLOBIN 9.3 g/dL (14.0-18.0); LYMPHOCYTES # (AUTO) 1.6 (1.0-3.2); LYMPHOCYTES % 17.8 % (18.0-39.1); MEAN CORPUSCULAR HEMOGLOBIN 29.3 pg (28-32); MEAN CORPUSCULAR HGB CONC 30.9 g/dL (31-35); MONOCYTES # (AUTO) 0.8 (0.2-0.8); MONOCYTES % 8.4 % (4.4-11.3); NEUTROPHILS # (AUTO) 6.2 (2.1-6.9); NEUTROPHILS % 68.3 % (38.7-80.0); PLATELET COUNT 378 x10e3/uL (140-360); RED BLOOD COUNT 3.17 x10e6/uL (4.3-5.7); RED CELL DISTRIBUTION WIDTH 15.3 % (11.7-14.4)
[2017-08-10 09:45] LABS: ANION GAP 10.9 mmol/L (8-16); BLOOD UREA NITROGEN 14 mg/dL (7-26); BUN/CREATININE RATIO 23 (6-25); CALCIUM 8.2 mg/dL (8.4-10.2); CARBON DIOXIDE 33 mmol/L (22-29); CHLORIDE 100 mmol/L (98-107); CREATININE, SERUM 0.62 mg/dL (0.72-1.25); EST GLOMERULAR FILTRATION RATE > 60 ML/MIN (60-); GLUCOSE 145 mg/dL (74-118); POTASSIUM 3.9 mmol/L (3.5-5.1); SODIUM 140 mmol/L (136-145)
[2017-08-10] MEDS ORDERED: ACETAMINOPHEN 325 MG/10 ML UDC JT PRN (09:45)
[2017-08-10] MEDS: DIGOXIN INJ 0.25 MG/ML 2 ML AMP IV SCH (10:02)
[2017-08-10] MEDS: COLLAGENASE OINTMENT 30 GM TUBE TP SCH (10:02)
[2017-08-10] MEDS: ASPIRIN 325 MG TAB PO SCH (10:02)
[2017-08-10] MEDS: BALSAM PERU/CASTOR OIL 60 GM OINT...G. TP SCH (10:02)
[2017-08-10] MEDS ORDERED: TRAMADOL HCL 50 MG TAB PEG PRN (14:00)
[2017-08-10] MEDS: METRONIDAZOLE 500MG/NS 100ML 100 ML IV SCH ×2 (14:38)
[2017-08-11] VITALS (8 sets, daily range): BP systolic 102–135; BP diastolic 60–92
[2017-08-11] MEDS: HYDROMORPHONE 2MG/ML INJ IV PRN ×3 (00:33→13:26)
[2017-08-11] MEDS: IPRATROPIUM BROMIDE 0.02% 2.5 ML NEB NEB SCH ×4 (01:15→20:00)
[2017-08-11] MEDS: VANCOMYCIN 750MG/NS 150ML IVPB 150 ML IV SCH ×2 (02:00→14:43)
[2017-08-11] MEDS ORDERED: SODIUM CHLORIDE 0.9% 250ML 250 ML ONE (04:15)
[2017-08-11] MEDS: LEVOTHYROXINE SODIUM 100 MCG TAB PO SCH (06:37)
[2017-08-11] MEDS: METRONIDAZOLE 500MG/NS 100ML 100 ML IV SCH ×3 (06:37→21:52)
[2017-08-11] MEDS: DIGOXIN INJ 0.25 MG/ML 2 ML AMP IV SCH (08:45)
[2017-08-11] MEDS: FLUCONAZOLE 200 MG/100 ML 100 ML IV SCH (08:45)
[2017-08-11] MEDS: ASPIRIN 325 MG TAB PO SCH (10:19)
[2017-08-11] MEDS: AMLODIPINE BESYLATE 5 MG TAB PO SCH ×2 (10:19→20:32)
[2017-08-11] MEDS: BALSAM PERU/CASTOR OIL 60 GM OINT...G. TP SCH (10:20)
[2017-08-11] MEDS: COLLAGENASE OINTMENT 30 GM TUBE TP SCH (10:20)
[2017-08-12] VITALS (7 sets, daily range): BP systolic 120–153; BP diastolic 62–92
[2017-08-12] MEDS: HYDROMORPHONE 2MG/ML INJ IV PRN ×3 (00:45→11:15)
[2017-08-12] MEDS: IPRATROPIUM BROMIDE 0.02% 2.5 ML NEB NEB SCH ×4 (01:00→20:10)
[2017-08-12] MEDS: VANCOMYCIN 750MG/NS 150ML IVPB 150 ML IV SCH ×2 (02:00→13:39)
[2017-08-12] MEDS: METRONIDAZOLE 500MG/NS 100ML 100 ML IV SCH ×2 (06:18→13:39)
[2017-08-12] MEDS: LEVOTHYROXINE SODIUM 100 MCG TAB PO SCH (06:18)
[2017-08-12] MEDS: FLUCONAZOLE 200 MG/100 ML 100 ML IV SCH (08:47)
[2017-08-12] MEDS: ASPIRIN 325 MG TAB PO SCH (08:47)
[2017-08-12] MEDS: BALSAM PERU/CASTOR OIL 60 GM OINT...G. TP SCH (08:47)
[2017-08-12] MEDS: COLLAGENASE OINTMENT 30 GM TUBE TP SCH (08:47)
[2017-08-12] MEDS: DIGOXIN INJ 0.25 MG/ML 2 ML AMP IV SCH (08:47)
[2017-08-12] MEDS: AMLODIPINE BESYLATE 5 MG TAB PO SCH (08:47)
[2017-08-12] MEDS ORDERED: SODIUM CHLORIDE 0.9% 250ML 250 ML ONE (14:10)
[2017-08-12] MEDS ORDERED: METRONIDAZOLE 500 MG TAB PO SCH (22:00)
== END 2017-08-12 21:13 | DRG 870 ==
LOC: ER 13:51 → ERHOLD 19:18 → ICU 07-26 15:59 → MED/SURG2 07-27 16:44
PROVIDERS: ADMIT Internal Medicine; ATTEND Internal Medicine
PROC: 5A1955Z Respiratory Ventilation, Greater than 96 Consecutive Hours (ICD-10-PCS; principal; 2017-07-23)
PROC: 0DH63UZ Insertion of Feeding Device into Stomach, Percutaneous Approach (ICD-10-PCS; 2017-08-12)
DX: A41.9 Sepsis, unspecified organism (principal); J96.21 Acute and chronic respiratory failure with hypoxia; J69.0 Pneumonitis due to inhalation of food and vomit; R65.21 Severe sepsis with septic shock; L89.613 Pressure ulcer of right heel, stage 3; L89.623 Pressure ulcer of left heel, stage 3; J15.212 Pneumonia due to Methicillin resistant Staphylococcus aureus; B37.49 Other urogenital candidiasis; I69.359 Hemiplegia and hemiparesis following cerebral infarction affecting unspecified side; I48.0 Paroxysmal atrial fibrillation; Z93.0 Tracheostomy status; B96.1 Klebsiella pneumoniae [K. pneumoniae] as the cause of diseases classified elsewhere; B96.89 Other specified bacterial agents as the cause of diseases classified elsewhere; Z16.12 Extended spectrum beta lactamase (ESBL) resistance; Z79.01 Long term (current) use of anticoagulants; K52.9 Noninfective gastroenteritis and colitis, unspecified; E03.9 Hypothyroidism, unspecified; I73.9 Peripheral vascular disease, unspecified; Z74.01 Bed confinement status; F32.9 Major depressive disorder, single episode, unspecified; L89.152 Pressure ulcer of sacral region, stage 2
CPT/HCPCS: 36415; 36600; 49440; 71045; 74177; 74470; 80048; 80053; 80162; 80202; 81001; 82140; 82550; 82553; 82607; 82805; 82948; 83036; 83605; 83690; 83735; 83880; 84100; 84443; 84484; 85025; 85610; 85730; 87040; 87070; 87071; 87086; 87186; 87205; 87400; 87493; 92522; 93005; 93306; 94002; 94003; 94640; 96361; 96365; 97139; 99285; J1160; J1450; J1650; J1720; J1940; J2001; J2060; J2185; J2250; J2543; J3370; J3480; J7030; J7040; J7050; J7070; Q9967

== ENCOUNTER 2017-08-23 00:29 | Observation (INO) | payer MEDICARE ==
[~2017-08-23] VITALS: Ht 182.9 cm; Wt 92.5 kg
--- OUTSIDE RECORDS SUMMARY | 2017-08-23 00:32 | XMS REPORT ---
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 Allergies, Adverse Reactions, Alerts This patient has no known allergies or adverse reactions. Medications This patient has no known medications. Results Test Description Test Time Test Comments Text Results Atomic Results Result Comments CHEST SINGLE (PORTABLE) [place] [address] Patient Name: BEHZAD MCMAHON MR #: [id number] : 1955 Age/Sex: 61/M Req #: [id number] Adm Physician: BEHZAD BANSAL MD Ordered by: VANNESSA BRICENO MD Report #: [id number] Location: MED/SURG2 Room/Bed: [facility] _ Procedure: [id number] DX/CHEST SINGLE (PORTABLE) Exam Date: 08/02/17 Exam Time: 0520 REPORT STATUS: Signed EXAMINATION : CHEST SINGLE (PORTABLE) INDICATION: Follow-up intubation COMPARISON: 07/30/2017 FINDINGS: TUBES and LINES: Tracheostomy tube is stable. LUNGS: Lungs are well inflated. Minimal left lung base atelectasis. There is no evidence of pneumonia or pulmonary edema. PLEURA: No pleural effusion or pneumothorax. HEART AND MEDIASTINUM: The cardiomediastinal silhouette is unremarkable. BONES AND SOFT TISSUES: No acute osseous lesion. Soft tissues are unremarkable. UPPER ABDOMEN: No free air under the diaphragm. IMPRESSION: No acute thoracic abnormality. Signed by: Dr. Fortunato Moreno M.D. on 2017 7:07 AM Dictated By: FORTUNATO DURAN MD 6 Transcribed By: NANCY on 706 COPY TO: VANNESSA BRICENO MD CHEST SINGLE (PORTABLE) [place] [address] Patient Name: BEHZAD MCMAHON MR #: [id number] : 1955 Age/Sex: 61/M Req #: [id number] Adm Physician: BEHZAD BANSAL MD Ordered by: VANNESSA BRICENO MD Report #: [id number] Location: MED/SURG Room/Bed: [facility] _ Procedure: [id number] DX/CHEST SINGLE (PORTABLE) Exam Date: 07/30/17 Exam Time: 1700 REPORT STATUS: Signed EXAMINATION : CHEST SINGLE (PORTABLE) INDICATION: S pneumoinia COMPARISON: Chest x-ray 07/24/2017. 07/23/2017. FINDINGS: AP view TUBES and LINES: Tracheostomy tube remain unchanged. LUNGS: Lungs are not well inflated. Bilateral multifocal pneumonia is again seen. Slight improvement in the left lung apex and in the right lung base. New superimposed venous congestion. PLEURA: No pleural effusion or pneumothorax. HEART AND MEDIASTINUM: The cardiomediastinal silhouette is unremarkable. Aorta is tortuous. BONES AND SOFT TISSUES: No acute osseous lesion. Soft tissues are unremarkable. UPPER ABDOMEN: No free air under the diaphragm. IMPRESSION: Bilateral multifocal pneumonia is again seen. Slight improvement in the left lung apex and in the right lung base. New superimposed venous congestion. Signed by: Dr. Joe Quinones M.D. on 07/30/2017 6:00 PM Dictated By: JOE QUINONES MD 99 Transcribed By: NANCY on 07/30/17 1800 COPY TO: VANNESSA BRICENO MD CT ABDOMEN/PELVIS W [place] [address] Patient Name: BEHZAD MCMAHON MR #: [id number] : 1955 Age/Sex: 61/M Req #: [id number] Adm Physician: BEHZAD BANSAL MD Ordered by: TITA MAYEN MD Report #: [id number] Location: MED/SURG2 Room/Bed: [facility] ___ Procedure: [id number] CT/CT ABDOMEN/PELVIS W Exam Date: 07/29/17 Exam Time: 2109 REPORT STATUS: Signed EXAMINATION: CT of the abdomen and pelvis with contrast. TECHNIQUE: Spiral CT images of the abdomen and pelvis were performed from the lung bases to the lesser trochanters after the intravenous administration of 100 cc of Isovue 370 and the oral administration of dilute Gastrografin.. Coronal and sagittal reformatted images were obtained. COMPARISON: None. CLINICAL HISTORY: Colitis, acute hypoxic episode, abdominal pain DISCUSSION: Exam limited by artifact from patient's arms ABDOMEN/PELVIS: LOWER THORAX: Small left and trace right pleural effusions with moderate bilateral basal atelectatic changes. Nodular/tree-in-bud opacities are noted in the lateral right middle lobe (series 2, image 3). HEPATOBILIARY: No focal hepatic lesions. No intra or extrahepatic biliary ductal dilation. GALLBLADDER: No radio-opaque stones or sludge. No wall thickening. SPLEEN: No splenomegaly. 2.8 cm round, well-circumscribed lesion in the medial spleen ( series 2, image 13), which measures near water density. PANCREAS: No focal masses or ductal dilatation. ADRENALS: No adrenal nodules. KIDNEYS/ URETERS: No hydronephrosis, stones, or solid mass lesions. There is contour abnormality in the posteromedial interpolar right kidney (series 2, image 36) , which may represent cortical scarring. Wedge-shaped hypodensities noted in the inferior left kidney (series 2, image 43 and possibly right upper pole ( coronal image 72). PELVIC ORGANS/BLADDER: Bladder is decompressed and there is a Weiss catheter in place. PERITONEUM/RETROPERITONEUM: Trace free fluid in the pelvic cul-de-sac (series 2, image 76). LYMPH NODES: No intra-abdominal, retroperitoneal, pelvic or inguinal lymphadenopathy. VESSELS: The celiac trunk,superior and inferior mesenteric and bilateral renal arteries are patent The portal, superior mesenteric and splenic veins are patent. Atherosclerotic calcification of the infrarenal abdominal aorta and iliac vessels GI TRACT: There is mild gaseous dilation of the transverse colon, with maximal measurement of 6.8 cm. The ascending, descending and sigmoid colon are normal in caliber. No obstructing mass, wall thickening or abnormal enhancement.No definite evidence of obstruction Small bowel is normal in caliber. There is likely a high riding cecum. BONES AND SOFT TISSUE : No aggressive lytic lesion. Degenerative changes in the lower thoracic and lumbosacral spine. IMPRESSION: 1. Mild gaseous dilation of the transverse colon, with maximal measurement of 6.8 cm, however, the rest of the large bowel is normal in caliber. No obstructing mass, wall thickening or abnormal enhancement is identified. Small bowel is normal in caliber. No evidence of obstruction. 2. Findings in the inferior left kidney and right upper pole may represent infection/pyelonephritis. Correlate with urinalysis. 3. Small left and trace right pleural effusions with moderate bilateral atelectatic changes. Tree-in-bud opacities in the lateral right middle lobe suggesting endobronchial spread of infection/developing pneumonia. 4. 2.8 cm well-circumscribed near water density in the spleen may reflect a hemangioma or cyst. Signed by: Dr. Surya Coates M.D. on 07/30/2017 2:42 PM Dictated By: SURYA COATES MD 1442 Transcribed By: NANCY on 07/30/171441 COPY TO: TITA MAYEN MD CHEST SINGLE (PORTABLE) [place] [address] Patient Name: BEHZAD MCMAHON MR #: [id number] : 1955 Age/Sex: 61/M Req #: [id number] Adm Physician: BEHZAD BANSAL MD Ordered by: TUNG SUE MD Report #: [id number] Location: [facility] Room/Bed: [place] [address] Procedure: [id number] DX/CHEST SINGLE (PORTABLE) Exam Date: 07/24/17 Exam Time: 0600 REPORT STATUS: Signed EXAM: CHEST SINGLE (PORTABLE), AP 1 view DATE: 07/24/2017 5:00 AM Time stamp on exam : 0617 hours INDICATION: Shortness of breath, ventilated patient COMPARISON : AP view of the chest July 23, 2017 FINDINGS: LINES/TUBES: Stable tracheostomy tube LUNGS: Airspace opacities predominantly in the lung bases. PLEURA: No effusions or pneumothorax. HEART AND MEDIASTINUM: Normal size and contour. BONES AND SOFT TISSUES: No acute findings. IMPRESSION: Stable findings suspicious for multifocal pneumonia. Signed by: Dr. Niesha Wong M.D. on 07/24/2017 9:51 PM Dictated By: NIESHA WONG MD 50 Transcribed By: NANCY on 07/24/172150 COPY TO: TUNG SUE MD CHEST SINGLE (PORTABLE) [place] [address] Patient Name: BEHZAD CHRISTIAN MR #: [id number] : 1955 Age/Sex: 61/M Req #: [id number] Adm Physician: Ordered by: TOMASA RITTER MACHINE OR MACHINERY MECHANIC Report # : [id number] Location: ER Room/Bed: Procedure: [id number] DX/CHEST SINGLE (PORTABLE) Exam Date: 07/23/17 Exam Time: 1453 REPORT STATUS: Signed PROCEDURE: A single AP view of the chest. COMPARISON: None. INDICATIONS: SHORTNESS OF BREATH FINDINGS: Lines/tubes: Tracheostomy tube is in place. Lungs: Lungs are hypoinflated. Multifocal air space opacities, including the left upper lobe. Pleura: There is no pleural effusion or pneumothorax. Heart and mediastinum: The heart and the mediastinum are unremarkable. Bones: No acute bony abnormality. IMPRESSION: Multifocal airspace opacities, likely multifocal pneumonia/aspiration. Dictated by: Joe Quinones M.D. on 07/23/2017 at 15:14 Electronically approved by: Joe Quinones M.D. on 07/23/2017 at 15:14 Dictated By: JOE QUINONES MD 1515 Transcribed By: STEPHANIE on 07/23/17 1515 COPY TO: TOMASA RITTER NP
[2017-08-23] MEDS ORDERED: ONDANSETRON HCL INJ 2 MG/ML VIAL IV PRN (02:00)
[2017-08-23 03:41] LABS: BASOPHILS % 0.3 % (0.0-1.0); EOSINOPHILS # (AUTO) 0.3 (0.0-0.4); EOSINOPHILS % 2.8 % (0.0-6.0); HEMOGLOBIN 10.8 g/dL (14.0-18.0); LYMPHOCYTES # (AUTO) 2.3 (1.0-3.2); LYMPHOCYTES % 21.7 % (18.0-39.1); MEAN CORPUSCULAR HEMOGLOBIN 29.5 pg (28-32); MEAN CORPUSCULAR HGB CONC 31.8 g/dL (31-35); MEAN CORPUSCULAR VOLUME 92.9 fL (81-99); MONOCYTES # (AUTO) 0.7 (0.2-0.8); MONOCYTES % 6.9 % (4.4-11.3); NEUTROPHILS # (AUTO) 7.3 (2.1-6.9); NEUTROPHILS % 67.6 % (38.7-80.0); PLATELET COUNT 391 x10e3/uL (140-360); RED BLOOD COUNT 3.66 x10e6/uL (4.3-5.7); RED CELL DISTRIBUTION WIDTH 15.7 % (11.7-14.4)
[2017-08-23 04:00] VITALS: BP 126/66
[2017-08-23 04:02] LABS: ALANINE AMINOTRANSFERASE 20 IU/L (0-55); ALBUMIN 2.4 g/dL (3.5-5.0); ALBUMIN/GLOBULIN RATIO 0.5 (0.8-2.0); ALKALINE PHOSPHATASE 147 IU/L (40-150); BLOOD UREA NITROGEN 19 mg/dL (7-26); BUN/CREATININE RATIO 32 (6-25); CALCIUM 8.2 mg/dL (8.4-10.2); CARBON DIOXIDE 31 mmol/L (22-29); CHLORIDE 96 mmol/L (98-107); CREATININE, SERUM 0.59 mg/dL (0.72-1.25); EST GLOMERULAR FILTRATION RATE > 60 ML/MIN (60-); GLUCOSE 88 mg/dL (74-118); SODIUM 138 mmol/L (136-145)
[2017-08-23] MEDS ORDERED: TRANSDERM-SCOP1 EACH TD (04:28)
[2017-08-23] MEDS ORDERED: LEVOTHYROXINE50 MCG PEG (04:28)
[2017-08-23] MEDS ORDERED: VITAMIN C500 MG/15 PEG (04:28)
[2017-08-23] MEDS ORDERED: ULTRAM50 MG PEG (04:28)
[2017-08-23] MEDS ORDERED: COLLAGENASE1 EACH TOP (04:28)
[2017-08-23] MEDS ORDERED: TYLENOL WITH C1 EACH PEG (04:28)
[2017-08-23] MEDS ORDERED: VENELEX OINTMEN60 GM (04:28)
[2017-08-23] MEDS ORDERED: AMLODIPINE BESYL5 MG PEG (04:28)
[2017-08-23 05:42] VITALS: BP 126/66
[2017-08-23] MEDS: DEXTROSE 5%/0.45% SOD CHL 1,000 ML IV SCH ×2 (06:04→12:00)
[2017-08-23 08:10] VITALS: BP 118/67
[2017-08-23] MEDS ORDERED: LIDOCAINE HCL 2% LOCAL 20 ML VIAL ONE (09:59)
[2017-08-23] MEDS ORDERED: SODIUM CHLORIDE 0.9% 500ML 1,000 ML ONE (09:59)
[2017-08-23 11:58] VITALS: BP 118/67
[2017-08-23 12:22] VITALS: BP 107/68
--- NOTE | 2017-08-23 13:29 | Diagnostic Imaging Report ---
Date and Time: 08/23/2017 Procedure: Evaluation and clearance of an occluded jejunostomy catheter pattern generator operator: Dr. Mathis Pre-operative diagnosis: Occluded jejunostomy catheter Post-operative diagnosis: Patent, appropriately positioned jejunostomy catheter Conscious Sedation: None The patient's heart rate and pulse oximetry were continuously monitored by the interventional radiology nurse. Blood pressure was monitored at 5 minute intervals. Additional Medications: None Fluoroscopy time: 1.3 minutes Dose-area Product: Not recorded due to equipment error Contrast used: 40 cc Isovue-300 Estimated blood loss: None Specimens: None Implants: None DISCUSSION: Informed consent was obtained from the patient's next of kin and documented in the medical record. The patient was placed in the supine position on the angiographic table. The left midabdomen and existing jejunostomy catheter were prepped and draped in the standard sterile fashion. Initial attempts to flush the jejunostomy catheter were met with significant resistance and saline reflux from the external portion of the catheter. A 0.0 3 5-in. hydrophilic wire was then advanced into the catheter under fluoroscopic guidance. At the approximate point of the junction of the middle and distal thirds of the catheter, resistance was met. The wire was removed and the back end of the hydrophilic wire was then advanced through the catheter, slightly farther within the occluded segment. The wire was removed. A 5 [place] angled catheter was then advanced through the jejunostomy catheter to the point of obstruction. Saline was then forcefully injected through the 5 [place] catheter, with resolution of initial significant resistance to flow. Contrast material was then injected through the 5 [place] catheter, with resultant opacification of the distal aspect of the catheter and loops of jejunum. The wire was reintroduced through the 5 [place] catheter and advanced through the catheter and into the small bowel. The wire was removed. Saline was injected through the 5 [place] catheter as it was removed from the jejunostomy. The jejunostomy catheter was then directly injected with contrast material, without significant resistance to flow and showing brisk passage of contrast through the catheter and into the small bowel. The catheter was then flushed copiously with sterile saline and a sterile dressing was applied. FINDINGS: Appropriately positioned jejunostomy catheter, initially occluded by enteral feed and medication debris. IMPRESSION: Successful evaluation and clearance of an occluded jejunostomy catheter. Orders were placed in the chart to flush the catheter with 50 cc sterile saline after each use, and to restrict medications administered through the catheter to those in liquid form. Signed by: Dr. Sekou Mathis M.D. on 08/23/2017 1:26 PM
--- NOTE | 2017-08-30 10:56 | Diagnostic Imaging Report ---
Date and Time: 08/23/2017 Procedure: Evaluation and clearance of an occluded jejunostomy catheter wrap knitting machine operator: Dr. Mathis Pre-operative diagnosis: Occluded jejunostomy catheter Post-operative diagnosis: Patent, appropriately positioned jejunostomy catheter Conscious Sedation: None The patient's heart rate and pulse oximetry were continuously monitored by the interventional radiology nurse. Blood pressure was monitored at 5 minute intervals. Additional Medications: None Fluoroscopy time: 1.3 minutes Dose-area Product: Not recorded due to equipment error Contrast used: 40 cc Isovue-300 Estimated blood loss: None Specimens: None Implants: None DISCUSSION: Informed consent was obtained from the patient's next of kin and documented in the medical record. The patient was placed in the supine position on the angiographic table. The left midabdomen and existing jejunostomy catheter were prepped and draped in the standard sterile fashion. Initial attempts to flush the jejunostomy catheter were met with significant resistance and saline reflux from the external portion of the catheter. A 0.0 3 5-in. hydrophilic wire was then advanced into the catheter under fluoroscopic guidance. At the approximate point of the junction of the middle and distal thirds of the catheter, resistance was met. The wire was removed and the back end of the hydrophilic wire was then advanced through the catheter, slightly farther within the occluded segment. The wire was removed. A 5 Cuban angled catheter was then advanced through the jejunostomy catheter to the point of obstruction. Saline was then forcefully injected through the 5 [place] catheter, with resolution of initial significant resistance to flow. Contrast material was then injected through the 5 [place] catheter, with resultant opacification of the distal aspect of the catheter and loops of jejunum. The wire was reintroduced through the 5 [place] catheter and advanced through the catheter and into the small bowel. The wire was removed. Saline was injected through the 5 [place] catheter as it was removed from the jejunostomy. The jejunostomy catheter was then directly injected with contrast material, without significant resistance to flow and showing brisk passage of contrast through the catheter and into the small bowel. The catheter was then flushed copiously with sterile saline and a sterile dressing was applied. FINDINGS: Appropriately positioned jejunostomy catheter, initially occluded by enteral feed and medication debris. IMPRESSION: Successful evaluation and clearance of an occluded jejunostomy catheter. Orders were placed in the chart to flush the catheter with 50 cc sterile saline after each use, and to restrict medications administered through the catheter to those in liquid form. Signed by: Dr. Sekou Mathis M.D. on 08/23/2017 1:26 PM
== END 2017-08-23 14:05 ==
LOC: ER 00:29 → ERHOLD 02:16 → IMCU 02:55
PROVIDERS: ADMIT Internal Medicine; ATTEND Internal Medicine
DX: K94.13 Enterostomy malfunction (principal); Z74.01 Bed confinement status; L89.159 Pressure ulcer of sacral region, unspecified stage; I69.398 Other sequelae of cerebral infarction; Z93.0 Tracheostomy status
CPT/HCPCS: 36415; 49440; 49460; 74470; 77001; 80053; 85025; 99284; G0378; J2001; J7040

== ENCOUNTER 2017-08-30 20:17 | Inpatient (IN) | payer MEDICARE, OTHER ==
[~2017-08-30] VITALS: Ht 182.9 cm; Wt 104.3 kg
[~2017-08-30 20:17] MED LIST changes: +AMLODIPINE BESYL5 MG PEG; +COLLAGENASE1 EACH TOP; +LEVOTHYROXINE50 MCG PEG; +TRANSDERM-SCOP1 EACH TD; +TYLENOL WITH C1 EACH PEG; +ULTRAM50 MG PEG; +VENELEX OINTMEN60 GM; +VITAMIN C500 MG/15 PEG
[2017-08-30 23:02] LABS: BASOPHILS # (AUTO) 0.1 (0.0-0.1); BASOPHILS % 0.4 % (0.0-1.0); EOSINOPHILS # (AUTO) 0.3 (0.0-0.4); EOSINOPHILS % 2.9 % (0.0-6.0); HEMATOCRIT 34.9 % (38.2-49.6); HEMOGLOBIN 11.3 g/dL (14.0-18.0); LYMPHOCYTES # (AUTO) 2.4 (1.0-3.2); LYMPHOCYTES % 21.2 % (18.0-39.1); MEAN CORPUSCULAR HEMOGLOBIN 29.3 pg (28-32); MEAN CORPUSCULAR HGB CONC 32.4 g/dL (31-35); MEAN CORPUSCULAR VOLUME 90.4 fL (81-99); MONOCYTES # (AUTO) 0.7 (0.2-0.8); MONOCYTES % 6.3 % (4.4-11.3); NEUTROPHILS # (AUTO) 7.8 (2.1-6.9); NEUTROPHILS % 68.7 % (38.7-80.0); PLATELET COUNT 409 x10e3/uL (140-360); RED BLOOD COUNT 3.86 x10e6/uL (4.3-5.7); RED CELL DISTRIBUTION WIDTH 16.5 % (11.7-14.4)
[2017-08-30 23:12] LABS: INR 1.2; PROTHROMBIN TIME 14.3 seconds (11.9-14.5)
[2017-08-30 23:13] LABS: PARTIAL THROMBOPLASTIN TIME 28.6 seconds (23.8-35.5)
[2017-08-30 23:19] LABS: ALANINE AMINOTRANSFERASE 31 IU/L (0-55); ALBUMIN 2.6 g/dL (3.5-5.0); ALBUMIN/GLOBULIN RATIO 0.5 (0.8-2.0); ALKALINE PHOSPHATASE 183 IU/L (40-150); ANION GAP 14.5 mmol/L (8-16); BLOOD UREA NITROGEN 12 mg/dL (7-26); BUN/CREATININE RATIO 19 (6-25); CALCIUM 8.9 mg/dL (8.4-10.2); CARBON DIOXIDE 32 mmol/L (22-29); CHLORIDE 97 mmol/L (98-107); CREATININE, SERUM 0.63 mg/dL (0.72-1.25); EST GLOMERULAR FILTRATION RATE > 60 ML/MIN (60-); GLUCOSE 101 mg/dL (74-118); POTASSIUM 3.5 mmol/L (3.5-5.1); SODIUM 140 mmol/L (136-145)
[2017-08-30] MEDS ORDERED: MORPHINE SULFATE 2 MG/ML SYR IV STA (23:30)
[2017-08-30] MEDS ORDERED: ONDANSETRON HCL INJ 2 MG/ML VIAL IV STA (23:30)
[2017-08-30] MEDS: DEXTROSE 5%/0.45% SOD CHL 1,000 ML IV SCH (23:48)
[2017-08-31] VITALS (9 sets, daily range): BP systolic 107–135; BP diastolic 58–80
[2017-08-31] MEDS ORDERED: DIGOXIN250 MCG JT (02:20)
[2017-08-31] MEDS ORDERED: ASPIRIN325 MG JT (02:20)
[2017-08-31] MEDS ORDERED: IPRATROPIU0.2 MG/1 M NEB (02:20)
[2017-08-31] MEDS ORDERED: MULTI-VITAMIN1 EACH JT (02:20)
[2017-08-31] MEDS ORDERED: ROBINUL1 MG JT (02:20)
[2017-08-31] MEDS: MORPHINE SULFATE 2 MG/ML SYR IV PRN ×3 (09:40→23:47)
[2017-08-31] MEDS: ONDANSETRON HCL INJ 2 MG/ML VIAL IV PRN ×2 (09:40→15:55)
[2017-08-31] MEDS: AMLODIPINE BESYLATE 5 MG TAB PEG SCH ×2 (11:45→21:38)
[2017-08-31] MEDS ORDERED: SCOPOLAMINE 1.5 MG PATCH TD PRN (11:45)
[2017-08-31] MEDS: IPRATROPIUM BROMIDE 0.02% 2.5 ML NEB NEB SCH ×2 (13:00→18:50)
--- NOTE | 2017-08-31 13:25 | History and Physical ---
CHIEF COMPLAINT: Clotted PEG tube. HISTORY OF PRESENT ILLNESS: This is a 62-year-old male who is a resident at [facility], brought into the ED with a clotted PEG tube. Patient is bedbound, has sacral decubitus ulcerations with a trach. He is PEG-tube fed. Patient was just discharged in July 2017 due to septic shock. Patient is now here due to a clotted PEG tube, which will be replaced later today around 1 p.m. Patient was evaluated at bedside, currently doing well with no other complaints. His vital signs were stable when I evaluated him. REVIEW OF SYSTEMS: Unable to obtain full review of systems as the patient is minimally verbal due to his baseline. ALLERGIES: SULFA, ACETAMINOPHEN AND HYDROCODONE. MEDICATIONS 1. Norvasc 5 mg daily. 2. Aspirin 325 mg daily. 3. Digoxin 0.25 mg daily. 4. Levothyroxine 100 mcg daily. 5. Multivitamin daily. 6. Scopolamine patch as needed for cough. 7. Tramadol 50 mg per PEG tube q.6 h. p.r.n. for pain. PAST MEDICAL HISTORY: He is nonverbal, limited at baseline. Sacral decubitus ulcerations. Tracheostomy. PEG tube placed. History of right craniotomy. Recently treated for septic shock. History of AFib. SURGICAL HISTORY: Has a tracheostomy, PEG tube, craniotomy. FAMILY HISTORY: Unable to obtain. SOCIAL HISTORY: Lives in [facility]. Unknown about his smoking, drugs or any alcohol history. VITAL SIGNS: Temperature is 97.4, pulse 93, respiratory rate is 17, blood pressure 124/61, pulse ox 100%, and he is on a trach collar at 8 liters. LAB FINDINGS: White count 11, hemoglobin 11.3, hematocrit is 35, platelets of 409. Coagulation: INR 1.2, PT 14, PTT 28.6. Chemistries: Sodium 140, potassium 3.5, chloride 97, bicarb 32, anion gap of 14, BUN is 12, creatinine is 0.6, glucose 101, calcium 8.9. LFTs were normal. Total protein 7.5, albumin 2.6. MICROBIOLOGY: None. IMAGING STUDIES: None. PHYSICAL EXAMINATION GENERAL: Not in acute distress. Has a tracheostomy, craniotomy in the past, PEG tube. HEENT: Head: Has history of right-sided craniotomy in the past. Eyes: Pupils equally round and reactive to light bilaterally. Extraocular movements intact bilaterally. NECK: Supple with good range of motion. He has a tracheostomy tube with a trach collar. PULMONARY: Clear to auscultation bilaterally. No wheezing, no rales, no rhonchi, no crackles appreciated. CARDIOVASCULAR: Positive S1/S2. No murmurs, rubs or gallops appreciated. ABDOMEN: Soft, nondistended, nontender to palpation. Bowel sounds present. MUSCULOSKELETAL: Unable to obtain. Patient is at bedbound. NEUROLOGICAL: Unable to obtain. He is able to speak. Unable to do the full examination. SKIN: Intact. Warm to touch. Good capillary refill. He does have sacral decubitus ulcerations, I think extensive. PSYCHIATRIC: At baseline. EXTREMITIES: No edema. Good range of motion throughout. IMPRESSION 1. Chronic respiratory failure with a tracheostomy with trach collar. 2. Percutaneous endoscopic gastrotomy tube-fed, now clotted PEG tube. 3. History of atrial fibrillation. 4. Significantly debilitated. 5. Sacral decubitus ulcerations. 6. History of craniotomy. PLAN: At this time, Interventional Radiology has been consulted for a PEG tube replacement. Patient is only here for that. It will be replaced and likely discharge tomorrow. We are going to resume all his home medications per PEG tube. His vital signs were stable when I evaluated him. We are going to repeat labs in the morning. If stable, will discharge back tomorrow back to the [facility]. Job#: [id number] EV
[2017-08-31] MEDS ORDERED: IOPAMIDOL 300MG/ML 100 ML INFUS..BTL IV PRN (13:36)
[2017-08-31] MEDS ORDERED: LIDOCAINE HCL 2% LOCAL 20 ML VIAL PRN (13:36)
[2017-08-31] MEDS ORDERED: SODIUM CHLORIDE 0.9% 250ML 250 ML PRN (13:36)
[2017-08-31] MEDS: GLYCOPYRROLATE 1 MG TAB JT SCH ×2 (15:50→21:37)
[2017-08-31] MEDS: DEXTROSE 5%/0.45% SOD CHL 1,000 ML IV SCH (17:02)
[2017-08-31] MEDS: TRAMADOL HCL 50 MG TAB PEG PRN (19:54)
[2017-09-01] VITALS (9 sets, daily range): BP systolic 84–140; BP diastolic 64–71
[2017-09-01] MEDS: IPRATROPIUM BROMIDE 0.02% 2.5 ML NEB NEB SCH ×4 (02:00→19:10)
[2017-09-01] MEDS: TRAMADOL HCL 50 MG TAB PEG PRN (03:28)
[2017-09-01] MEDS: DEXTROSE 5%/0.45% SOD CHL 1,000 ML IV SCH ×3 (04:21→15:45)
[2017-09-01] MEDS: LEVOTHYROXINE SODIUM 100 MCG TAB PEG SCH (05:31)
[2017-09-01 05:47] LABS: BASOPHILS # (AUTO) 0.1 (0.0-0.1); BASOPHILS % 0.6 % (0.0-1.0); EOSINOPHILS # (AUTO) 0.4 (0.0-0.4); EOSINOPHILS % 4.8 % (0.0-6.0); HEMATOCRIT 30.5 % (38.2-49.6); HEMOGLOBIN 9.7 g/dL (14.0-18.0); LYMPHOCYTES # (AUTO) 2.1 (1.0-3.2); LYMPHOCYTES % 26.8 % (18.0-39.1); MEAN CORPUSCULAR HEMOGLOBIN 29.3 pg (28-32); MEAN CORPUSCULAR HGB CONC 31.8 g/dL (31-35); MEAN CORPUSCULAR VOLUME 92.1 fL (81-99); MONOCYTES # (AUTO) 0.6 (0.2-0.8); MONOCYTES % 7.9 % (4.4-11.3); NEUTROPHILS # (AUTO) 4.6 (2.1-6.9); NEUTROPHILS % 59.4 % (38.7-80.0); PLATELET COUNT 333 x10e3/uL (140-360); RED BLOOD COUNT 3.31 x10e6/uL (4.3-5.7); RED CELL DISTRIBUTION WIDTH 16.3 % (11.7-14.4)
[2017-09-01] MEDS: MORPHINE SULFATE 2 MG/ML SYR IV PRN ×3 (05:47→23:56)
[2017-09-01 06:14] LABS: ANION GAP 10.7 mmol/L (8-16); BLOOD UREA NITROGEN 9 mg/dL (7-26); BUN/CREATININE RATIO 14 (6-25); CALCIUM 8.1 mg/dL (8.4-10.2); CARBON DIOXIDE 31 mmol/L (22-29); CHLORIDE 97 mmol/L (98-107); CREATININE, SERUM 0.66 mg/dL (0.72-1.25); EST GLOMERULAR FILTRATION RATE > 60 ML/MIN (60-); GLUCOSE 250 mg/dL (74-118); SODIUM 136 mmol/L (136-145)
[2017-09-01 06:17] LABS: POTASSIUM 2.7 mmol/L (3.5-5.1)
[2017-09-01] MEDS: DIGOXIN 0.125 MG TAB JT SCH (08:56)
[2017-09-01] MEDS: ASPIRIN 325 MG TAB JT SCH (08:56)
[2017-09-01] MEDS: ZINC SULFATE 220 MG CAP PEG SCH (08:57)
[2017-09-01] MEDS: GLYCOPYRROLATE 1 MG TAB JT SCH ×3 (08:57→21:00)
[2017-09-01] MEDS: AMLODIPINE BESYLATE 5 MG TAB PEG SCH ×2 (08:57→21:00)
[2017-09-01] MEDS: MULTIVITAMINS 5 ML LIQUID JT SCH (08:57)
[2017-09-01] MEDS ORDERED: DIGOXIN 0.25 MG TAB JT SCH (09:00)
[2017-09-01] MEDS ORDERED: SODIUM CHLORIDE 0.9% 250ML 250 ML ONE ×2 (10:16→13:06)
[2017-09-01] MEDS: POTASSIUM CHLORIDE 20MEQ/100ML 100 ML IV SCH ×2 (10:25→13:08)
[2017-09-01 13:28] LABS: ALBUMIN 2.3 g/dL (3.5-5.0); BILIRUBIN,DIRECT 0.3 mg/dL (0.0-5.0); MAGNESIUM 1.3 MG/DL (1.3-2.1); PHOSPHORUS 3.3 MG/DL (2.3-4.7)
[2017-09-01] MEDS: ONDANSETRON HCL INJ 2 MG/ML VIAL IV PRN ×2 (17:20→23:56)
[2017-09-01] MEDS ORDERED: PERIPHERAL TPN FORMULA 1 BAG IV SCH (20:00)
[2017-09-01] MEDS ORDERED: DEXTROSE 10% 1,000 ML IV PRN (20:00)
[2017-09-02] VITALS (8 sets, daily range): BP systolic 96–139; BP diastolic 58–80
[2017-09-02] MEDS: DEXTROSE 5%/0.45% SOD CHL 1,000 ML IV SCH (01:45)
[2017-09-02] MEDS: IPRATROPIUM BROMIDE 0.02% 2.5 ML NEB NEB SCH ×4 (01:46→19:36)
[2017-09-02] MEDS: LEVOTHYROXINE SODIUM 100 MCG TAB PEG SCH (06:00)
[2017-09-02 06:24] LABS: BASOPHILS # (AUTO) 0.1 (0.0-0.1); BASOPHILS % 0.5 % (0.0-1.0); EOSINOPHILS # (AUTO) 0.3 (0.0-0.4); EOSINOPHILS % 2.6 % (0.0-6.0); LYMPHOCYTES # (AUTO) 1.9 (1.0-3.2); LYMPHOCYTES % 19.2 % (18.0-39.1); MEAN CORPUSCULAR HEMOGLOBIN 29.3 pg (28-32); MEAN CORPUSCULAR HGB CONC 31.3 g/dL (31-35); MEAN CORPUSCULAR VOLUME 93.8 fL (81-99); MONOCYTES # (AUTO) 0.9 (0.2-0.8); MONOCYTES % 9.2 % (4.4-11.3); NEUTROPHILS # (AUTO) 6.8 (2.1-6.9); NEUTROPHILS % 68.1 % (38.7-80.0); PLATELET COUNT 339 x10e3/uL (140-360); RED BLOOD COUNT 3.41 x10e6/uL (4.3-5.7); RED CELL DISTRIBUTION WIDTH 16.3 % (11.7-14.4)
[2017-09-02 06:49] LABS: ALANINE AMINOTRANSFERASE 20 IU/L (0-55); ALBUMIN 2.2 g/dL (3.5-5.0); ALBUMIN/GLOBULIN RATIO 0.5 (0.8-2.0); ALKALINE PHOSPHATASE 146 IU/L (40-150); ANION GAP 9.5 mmol/L (8-16); BLOOD UREA NITROGEN 10 mg/dL (7-26); BUN/CREATININE RATIO 17 (6-25); CALCIUM 8.4 mg/dL (8.4-10.2); CARBON DIOXIDE 30 mmol/L (22-29); CHLORIDE 99 mmol/L (98-107); CREATININE, SERUM 0.58 mg/dL (0.72-1.25); EST GLOMERULAR FILTRATION RATE > 60 ML/MIN (60-); GLUCOSE 117 mg/dL (74-118); POTASSIUM 3.5 mmol/L (3.5-5.1); SODIUM 135 mmol/L (136-145)
[2017-09-02] MEDS: MULTIVITAMINS 5 ML LIQUID JT SCH ×2 (08:26→11:32)
[2017-09-02] MEDS: DIGOXIN 0.125 MG TAB JT SCH ×2 (08:26→11:32)
[2017-09-02] MEDS: AMLODIPINE BESYLATE 5 MG TAB PEG SCH ×2 (08:26→21:00)
[2017-09-02] MEDS: GLYCOPYRROLATE 1 MG TAB JT SCH ×3 (08:26→21:00)
[2017-09-02] MEDS: ASPIRIN 325 MG TAB JT SCH ×2 (08:26→11:32)
[2017-09-02] MEDS: ZINC SULFATE 220 MG CAP PEG SCH ×2 (08:27→11:32)
[2017-09-02] MEDS ORDERED: PERIPHERAL TPN FORMULA 1 BAG IV SCH ×2 (14:45→20:00)
[2017-09-02] MEDS: MORPHINE SULFATE 2 MG/ML SYR IV PRN ×2 (16:15→22:14)
[2017-09-02] MEDS: TRAMADOL HCL 50 MG TAB PEG PRN (19:44)
[2017-09-03 01:07] VITALS: BP 124/73
[2017-09-03] MEDS: IPRATROPIUM BROMIDE 0.02% 2.5 ML NEB NEB SCH ×3 (01:25→13:45)
[2017-09-03] MEDS: MORPHINE SULFATE 2 MG/ML SYR IV PRN ×2 (04:04→15:20)
[2017-09-03 05:33] VITALS: BP 136/79
[2017-09-03] MEDS: LEVOTHYROXINE SODIUM 100 MCG TAB PEG SCH (05:47)
[2017-09-03] MEDS: TRAMADOL HCL 50 MG TAB PEG PRN (05:48)
[2017-09-03 06:27] LABS: ALANINE AMINOTRANSFERASE 21 IU/L (0-55); ALBUMIN 2.5 g/dL (3.5-5.0); ALBUMIN/GLOBULIN RATIO 0.6 (0.8-2.0); ALKALINE PHOSPHATASE 158 IU/L (40-150); ANION GAP 13.5 mmol/L (8-16); BLOOD UREA NITROGEN 16 mg/dL (7-26); BUN/CREATININE RATIO 28 (6-25); CALCIUM 8.4 mg/dL (8.4-10.2); CARBON DIOXIDE 30 mmol/L (22-29); CHLORIDE 100 mmol/L (98-107); CREATININE, SERUM 0.57 mg/dL (0.72-1.25); EST GLOMERULAR FILTRATION RATE > 60 ML/MIN (60-); GLUCOSE 115 mg/dL (74-118); POTASSIUM 3.5 mmol/L (3.5-5.1); SODIUM 140 mmol/L (136-145)
[2017-09-03 08:27] VITALS: BP 122/66
[2017-09-03] MEDS ORDERED: BALSAM PERU/CASTOR OIL 60 GM OINT...G. TP SCH (09:00)
[2017-09-03] MEDS ORDERED: COLLAGENASE 5 GM TUBE TOP SCH (09:00)
[2017-09-03 09:11] VITALS: BP 122/66
[2017-09-03] MEDS: AMLODIPINE BESYLATE 5 MG TAB PEG SCH (09:11)
[2017-09-03] MEDS: MULTIVITAMINS 5 ML LIQUID JT SCH (09:11)
[2017-09-03] MEDS: ZINC SULFATE 220 MG CAP PEG SCH (09:11)
[2017-09-03] MEDS: GLYCOPYRROLATE 1 MG TAB JT SCH ×2 (09:11→15:50)
[2017-09-03] MEDS: DIGOXIN 0.125 MG TAB JT SCH (09:11)
[2017-09-03] MEDS: ASPIRIN 325 MG TAB JT SCH (09:11)
[2017-09-03 11:59] VITALS: BP 136/74
[2017-09-03 15:45] VITALS: BP 119/73
--- NOTE | 2017-09-30 09:11 | Diagnostic Imaging Report ---
PROCEDURE:G/J TUBE OBSTR REMOV COMPARISON:Catheter evaluation 08/23/2017. INDICATIONS:Nonfunctioning catheter. FINDINGS:Focused physical examination demonstrated a percutaneous medium bore catheter in the left lower quadrant. Due to the location of the catheter, the catheter is likely a jejunostomy and not a gastrostomy, as the consult described. The existing catheter and surrounding skin were prepped and draped in usual sterile fashion. A syringe with contrast was attached to the catheter. Gentle contrast injection was unsuccessful. The catheter demonstrated complete occlusion. A 0.035 inch wire was advanced through the catheter. The wire could not be advanced through the catheter. An attempt was made to remove the catheter. The catheter could not be removed with moderate tension. Forceful hand-injection with saline cleared the catheter. Contrast opacification of multiple loops of jejunum was noted. The catheter demonstrated proper function with aspiration and flushing of contrast. The catheter was flushed with sterile saline. A sterile dressing was applied. CONCLUSION: Successful contrast evaluation of an existing jejunostomy catheter utilizing fluoroscopic guidance. The catheter was cleared utilizing forceful injection of sterile saline. In the future, if the catheter needs to be exchanged, surgical evaluation is necessary. The catheter cannot be removed or exchange via percutaneous approach. Dictated by: Adi Cristina M.D. on 09/30/2017 at 9:11 Electronically approved by: Adi Cristina M.D. on 09/30/2017 at 9:11
--- NOTE | 2017-11-23 02:33 | Discharge Summary ---
FINAL DIAGNOSES: 1. Tube feeding malfunction. 2. Status post tube feeding revision by interventional radiology. SUMMARY: Patient is a 62-year-old male with tube feeding at the skilled facility. The patient came in because the tube feeding is not working. The patient is otherwise stable. The PEG tube was declotted, but not functioning. Interventional radiology was consulted. A revision was done and it was stable. The patient was stable. He was sent back to the nursing facility to continue with his treatments. Job#: [id number]
== END 2017-09-03 17:48 | DRG 393 ==
LOC: ER 20:17 → IMCU 23:55 → OBSVTOIN 09-02 09:37 → MED/SURG2 09-02 11:51
PROVIDERS: ADMIT Internal Medicine; ATTEND Internal Medicine
PROC: 3C1ZX8Z Irrigation of Indwelling Device using Irrigating Substance, External Approach (ICD-10-PCS; principal; 2017-08-31)
DX: K94.23 Gastrostomy malfunction (principal); L89.154 Pressure ulcer of sacral region, stage 4; J96.10 Chronic respiratory failure, unspecified whether with hypoxia or hypercapnia; I69.359 Hemiplegia and hemiparesis following cerebral infarction affecting unspecified side; L89.159 Pressure ulcer of sacral region, unspecified stage; Z74.01 Bed confinement status; E03.9 Hypothyroidism, unspecified; I48.91 Unspecified atrial fibrillation; Z79.01 Long term (current) use of anticoagulants; Z86.718 Personal history of other venous thrombosis and embolism; Z93.0 Tracheostomy status; R53.81 Other malaise
CPT/HCPCS: 36415; 49460; 74470; 77001; 80048; 80053; 80076; 82330; 82948; 83735; 84100; 84132; 84134; 84478; 85025; 85610; 85730; 87071; 87075; 87186; 87205; 94640; 96365; 96366; 99284; G0378; J2001; J2270; J2405; J3480; J7050; Q9967